=== PATIENT | female | born 1985 | race Caucasian/White ===

== ENCOUNTER 2017-12-05 05:04 | Emergency (ER) | payer SELFPAY ==
--- OUTSIDE RECORDS SUMMARY | 2017-12-05 05:07 | XMS REPORT ---
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 , unspecified Hepatitis C 070.70 Active Rodari Unspecified / Coe viral AUTO MACHINIST hepatitis C without hepatic coma BMI 32.0-32.9 Active Rodari Body Mass / Coe Index AUTO MACHINIST 32.0-32.9, adult Breast Exam, V76.19 Active Rodari Other Screening / Coe screening AUTO MACHINIST breast examination Contraception V25.09 Active Rodari Encounter for counseling / Coe other general AUTO MACHINIST counseling and advice on contraceptive management Depression/anxi 300.4 Active Rodari Dysthymic ety / Coe disorder AUTO MACHINIST Encounter for V05.9 Active Rodari Need for immunization / Coe prophylactic AUTO MACHINIST vaccination and inoculation against unspecified single disease Obesity Active Rodari Obesity, / Coe unspecified AUTO MACHINIST PTSD 309.81 Active Rodari Posttraumatic / Coe stress AUTO MACHINIST disorder Screening for V73.98 Active Rodari Screening chlamydial / Coe examination disease AUTO MACHINIST for unspecified chlamydial disease Screening for V77.1 Active Rodari Screening for DM / Coe diabetes AUTO MACHINIST mellitus Screening for V77.99 Active Rodari Screening for endocrine / Coe other and disease AUTO MACHINIST unspecified endocrine, nutritional, metabolic, and immunity disorders Screening for V77.91 Active Rodari Screening for lipid disorder / Coe lipoid AUTO MACHINIST disorders Screening for V77.99 Active Rodari Screening for vitamin D / Oce other and deficiency AUTO MACHINIST unspecified endocrine, nutritional, metabolic, and immunity disorders Screening, STD V74.5 Active Rodari Screening Coe examination AUTO MACHINIST for venereal disease Special V73.89 Active Rodari Screening screening Coe examination examination for AUTO MACHINIST for other other specified specified viral diseases viral diseases Well Woman V72.31 Active Rodari Routine / [place] gynecological AUTO MACHINIST examination Medication List Medication Instructions Start Stop Generic NDC Status Provider Patient Date Date Name Instruction FLAGYL 500 MG 1 tab by METRONIDAZOLE 15953830229 Active Rodari Active TABS mouth twice Coe a day for 7 AUTO MACHINIST days FLUCONAZOLE 1 tablet by FLUCONAZOLE 74030485381 Active Rodari Active 150 MG TABS mouth once. Coe Take after AUTO MACHINIST completing your Flagyl. ABILIFY 10 MG 1 tablet by ARIPIPRAZOLE 12905826814 Active Rodari Active ORAL TABLET mouth daily [place] AUTO MACHINIST LEXAPRO 20 MG 1 By Mouth ESCITALOPRAM 60265219504 Active Rodari Active TABS Every Day OXALATE Coe AUTO MACHINIST TRAZODONE HCL 1 by mouth TRAZODONE HCL 00641785192 Active Rodari Active 150 MG TABS nightly at [place] bedtime AUTO MACHINIST Advance Directives Directive Description Start Date DISCUSSED - NO DECISION MADE Immunizations Vaccine Administration Date Value Standard Description hepatitis B vaccine #1 given given hepatitis B vaccine, unspecified formulation Tetanus toxoid, reduced given tetanus toxoid, reduced diphtheria toxoid and diphtheria toxoid, and acellular Pertussis vaccine, acellular pertussis vaccine, absorbed (TdaP) given adsorbed Vital Signs Date Name Value Unit Range Description blood pressure, diastolic 75 mm[Hg] BP gamboa blood pressure, systolic 117 mm[Hg] BP sys height E&M 60 [in_us] Bdy height pulse rate E&M 64 /min Heart rate temperature E&M 98.2 [degF] Body temperature weight E&M 165 [lb_av] Weight Measured Diagnostic Results Date Name Value Unit Range Description Lab Report: CBC With Differential/Platelet, Comp. Metabolic Panel (14), ... - Serology hepatitis C antibody, serum >11.0 0.0-0.9 Office Visit: Annual / [employer] without PAP/ DEPO-Brith Control/ Vaccine Rm# 14 vac - Urinalysis pH, urine, semiquantitative 6.0 Lab Report: CBC With Differential/Platelet, Comp. Metabolic Panel (14), ... - Hematology lymphocyte count, blood, automated 2.6 X10E3/UL 10*3/mm3 0.7- 3.1 Office Visit: Annual / [employer] without PAP/ DEPO-Brith Control/ Vaccine Rm# 14 vac - Urinalysis bilirubin, urine negative Lab Report: CBC With Differential/Platelet, Comp. Metabolic Panel (14), ... - Chemistry urea nitrogen, blood 14 mg/dL 6-20 creatinine, serum 0.81 mg/dL 0.57-1.00 chloride, serum 102 mmol/L 96-106 Lab Report: CBC With Differential/Platelet, Comp. Metabolic Panel (14), ... - Hematology mean corpuscular volume, RBC 86 fL 79-97 Lab Report: CBC With Differential/Platelet, Comp. Metabolic Panel (14), ... - Chemistry triglyceride, serum, fasting 82 mg/dL 0-149 Lab Report: CBC With Differential/Platelet, Comp. Metabolic Panel (14), ... - Hematology erythrocyte (RBC) count 4.35 X10E6/UL 10*6/mm3 3.77-5.28 Lab Report: CBC With Differential/Platelet, Comp. Metabolic Panel (14), ... - Chemistry Estimated Glomerular Filtration Rate (calc) 96 mL/min/1.73m2 > 59 Office Visit: Annual / [employer] without PAP/ DEPO-Brith Control/ Vaccine Rm# 14 vac - Urinalysis appearance, urine clear Lab Report: CBC With Differential/Platelet, Comp. Metabolic Panel (14), ... - Hematology platelet count 167 X10E3/UL 10*3/mm3 072-224 8642/10/11 red blood cell distribution width 13.9 % 12.3-15.4 Lab Report: CBC With Differential/Platelet, Comp. Metabolic Panel (14), ... - Chemistry protein, total, serum 7.0 g/dL 6.0-8.5 HDL cholesterol, serum 49 mg/dL >39 Office Visit: Annual / [employer] without PAP/ DEPO-Brith Control/ Vaccine Rm# 14 vac - Urinalysis glucose, urine, semiquantitative negative Lab Report: CBC With Differential/Platelet, Comp. Metabolic Panel (14), ... - Hematology eosinophils as percent of blood leukocytes 1 % Not Estab. Lab Report: CBC With Differential/Platelet, Comp. Metabolic Panel (14), ... - Chemistry albumin/globulin ratio, serum 1.5 1.2-2.2 Absolute Neutrophils 4.9 X10E3/UL 10*3/uL 1.4-7.0 Lab Report: CBC With Differential/Platelet, Comp. Metabolic Panel (14), ... - Hematology basophil count, absolute 0.0 x10E3/uL 0.0-0.2 Lab Report: CBC With Differential/Platelet, Comp. Metabolic Panel (14), ... - Chemistry hepatitis B surface antigen Negative Negative alanine aminotransferase (SGPT), serum 30 U/L 0-32 LDL cholesterol, serum 104 mg/dL 0-99 Office Visit: Annual / [employer] without PAP/ DEPO-Brith Control/ Vaccine Rm# 14 vac - Urinalysis nitrite, urine, semiquantitative negative Lab Report: CBC With Differential/Platelet, Comp. Metabolic Panel (14), ... - Hematology monocytes as percent of blood leukocytes 5 % Not Estab. Lab Report: CBC With Differential/Platelet, Comp. Metabolic Panel (14), ... - Chemistry cholesterol, serum 169 mg/dL 100-199 Lab Report: CBC With Differential/Platelet, Comp. Metabolic Panel (14), ... - Hematology mean corpuscular hemoglobin concentration, RBC 31.9 G/DL % 31.5- 35.7 Office Visit: Annual / [employer] without PAP/ DEPO-Brith Control/ Vaccine Rm# 14 vac - Urinalysis leukocyte esterase, urine, by dipstick negative Lab Report: CBC With Differential/Platelet, Comp. Metabolic Panel (14), ... - Hematology hemoglobin, blood 11.9 g/dL 11.1-15.9 leukocyte count, blood 8.0 X10E3/UL 10*3/mm3 3.4-10.8 Office Visit: Annual / [employer] without PAP/ DEPO-Brith Control/ Vaccine Rm# 14 vac - Urinalysis protein, urine, semiquantitative (dipstick) negative Lab Report: CBC With Differential/Platelet, Comp. Metabolic Panel (14), ... - Hematology hematocrit, blood 37.3 % 34.0-46.6 Lab Report: CBC With Differential/Platelet, Comp. Metabolic Panel (14), ... - Chemistry globulin, serum 2.8 1.5-4.5 vitamin D 25-hydroxy, serum 47.3 ng/mL 30.0-100.0 thyroid stimulating hormone, serum 1.810 u[iU]/mL 0.450-4.500 albumin, serum 4.2 g/dL 3.5-5.5 very low density lipoproteins 16 mg/dL 5-40 Lab Report: CBC With Differential/Platelet, Comp. Metabolic Panel (14), ... - Serology rubella antibody, serum, IgG 2.94 Immune >0.99 Office Visit: Annual / [employer] without PAP/ DEPO-Brith Control/ Vaccine Rm# 14 vac - Urinalysis urobilinogen, urine, semiquantitative (dipstick) negative Lab Report: CBC With Differential/Platelet, Comp. Metabolic Panel (14), ... - Hematology basophils as percent of blood leukocytes 0 % Not Estab. Lab Report: CBC With Differential/Platelet, Comp. Metabolic Panel (14), ... - Chemistry calcium, serum 8.9 mg/dL 8.7-10.2 Lab Report: CBC With Differential/Platelet, Comp. Metabolic Panel (14), ... 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 [employer]ATE Lab Report: CBC With Differential/Platelet, Comp. Metabolic Panel (14), ... - Chemistry urea nitrogen/creatinine ratio, serum 17 9- immature granulocytes, percentage of total cells, blood 0 % Not Estab. Lab Report: CBC With Differential/Platelet, Comp. Metabolic Panel (14), ... - Genetics/fertility eGFR if 111 mL/min/1.73m2 >59 Lab Report: CBC With Differential/Platelet, Comp. Metabolic Panel (14), ... - Hematology lymphocytes as percent of blood leukocytes 33 % Not Estab. Lab Report: CBC With Differential/Platelet, Comp. Metabolic Panel (14), ... - Chemistry carbon dioxide, venous blood 26 mmol/L 18-29 Lab Report: CBC With Differential/Platelet, Comp. Metabolic Panel (14), ... - Serology rapid plasma reagin antibody, serum Non Reactive Non Reactive Lab Report: NuSwab Vaginitis Plus (VG+) - Lab chlamydia DNA probe Negative Negative Lab Report: CBC With Differential/Platelet, Comp. Metabolic Panel (14), ... - Chemistry sodium, serum 139 mmol/L 134-144 Lab Report: [facility] Vaginitis Plus (VG+) - Microbiology Neisseria gonorrhoeae DNA probe Negative Negative Office Visit: Annual / [employer] without PAP/ DEPO-Brith Control/ Vaccine Rm# 14 vac - Chemistry beta HCG, urine, semiquantitative negative Lab Report: CBC With Differential/Platelet, Comp. Metabolic Panel (14), ... - Chemistry alkaline phosphatase, serum 62 U/L 39-117 Office Visit: Annual / [employer] without PAP/ DEPO-Brith Control/ Vaccine Rm# 14 vac - Urinalysis ketones, urine, by test strip negative Lab Report: CBC With Differential/Platelet, Comp. Metabolic Panel (14), ... - Hematology Eosinophil Absolute Count 0.1 X10E3/UL 10*3/uL 0.0-0.4 Office Visit: Annual / [employer] without PAP/ DEPO-Brith Control/ Vaccine Rm# 14 vac - Urinalysis specific gravity, urine 1.025 Lab Report: CBC With Differential/Platelet, Comp. Metabolic Panel (14), ... - Hematology mean corpuscular hemoglobin, RBC 27.4 pg 26.6-33.0 Lab Report: [facility] Vaginitis Plus (VG+) - Urinalysis trichomonas vaginalis, urine Negative Negative Lab Report: CBC With Differential/Platelet, Comp. Metabolic Panel (14), ... - Chemistry bilirubin, serum, total 0.4 mg/dL 0.0-1.2 Lab Report: CBC With Differential/Platelet, Comp. Metabolic Panel (14), ... - Hematology neutrophils as percent of blood leukocytes 61 % Not Estab. Office Visit: Annual / [employer] without PAP/ DEPO-Brith Control/ Vaccine Rm# 14 vac - Urinalysis blood in urine (hemoglobin) by dipstick negative Lab Report: CBC With Differential/Platelet, Comp. Metabolic Panel (14), ... - Chemistry potassium, serum 4.1 mmol/L 3.5-5.2 blood glucose, random 84 mg/dL 65-99 aspartate aminotransferase (SGOT), serum 28 U/L 0-40 Office Visit: Annual / [employer] without PAP/ DEPO-Brith Control/ Vaccine Rm# 14 vac - Urinalysis urine color yellow Encounters Date Encounter Provider Code Facility New Patient Detailed Marshall Coe AUTO MACHINIST CPT-18194 [facility] 11:51:34 CDT - [address] Procedures Code Procedure Name Date Entry Date Standard Description CPT-26133 Handling of specimen for transfer 13:11:22 CDT CPT-88829 Venipuncture 13:11:20 CDT CPT-23041 TDAP 11:51:58 CDT CPT-58076 Admin of Vaccine - Injection - Each Add'l 11:51:58 CDT CPT-13987 Hepatitis B - Adult 11:51:58 CDT CPT-32602 Admin of Vaccine - Injection - 1 11:51:58 CDT CPT-88682 Urinalysis - Dip only - In [place] 11:51:36 CDT CPT-99634 Urinalysis - - [place] 11:51:35 CDT CPT-64423 Handling of specimen for transfer 11:51:35 CDT CPT-44466 Venipuncture 11:51:35 CDT CPT-55111 New Patient Well Exam ( - 38 Yrs) - [address] 11:51:30 CDT CPT-HE001 Health Education/Supportive 14:13:18 CDT Counseling
[2017-12-05] MEDS ORDERED: NA CHLORIDE 0.9% 1,000 ML ONE (05:52)
[2017-12-05 06:10] LABS: Absolute Lymphocytes (CBC) 2.6 K/uL (0.7-4.9); Absolute Monocytes 0.9 K/uL (0.1-1.3); Absolute Neutrophil 7.4 K/uL (1.8-8.0); Basophils % 0.4 % (0-1.3); Eosinophils % 0.3 % (0-4.4); Hematocrit 40.5 % (36.0-45.0); Lymphocytes % 23.9 % (15.3-44.8); MCH 27.9 pg (27.0-35.0); MCV 84.4 fL (80-100); MPV 10.6 fL (7.6-11.3); Monocytes % 8.1 % (3.3-12.3); RBC Red Blood Cell Count 4.79 M/uL (3.86-4.86)
[2017-12-05 06:13] LABS: Protime INR 1.08
[2017-12-05 06:57] LABS: ALT/SGPT 25 U/L (12-78); AST/SGOT 25 U/L (15-37); Albumin 3.7 g/dL (3.4-5.0); Alkaline Phosphatase 102 U/L (45-117); BUN Blood Urea Nitrogen 17 mg/dL (7-18); Bicarbonate 26 mmol/L (21-32); Bilirubin Direct 0.3 mg/dL (0-0.2); Bilirubin Total 0.8 mg/dL (0.2-1.0); Glucose Level 83 mg/dL (74-106); Protein, Total 7.9 g/dL (6.4-8.2); Sodium Level 143 mmol/L (136-145)
[2017-12-05 07:34] LABS: Alcohol Serum/Plasma < 3 mg/dL (0-3)
[2017-12-05] MEDS ORDERED: POTASSIUM 25 MEQ EFFERV TAB ONE (08:14)
[2017-12-05 08:42] LABS: Barbiturates NEGATIVE (NEGATIVE); Benzodiazepines POSITIVE (NEGATIVE); Cocaine POSITIVE (NEGATIVE); METHAMPHETAM POSITIVE (NEGATIVE); Methadone NEGATIVE (NEGATIVE); Opiates NEGATIVE (NEGATIVE); Phencyclidine NEGATIVE (NEGATIVE); THC Cannibis POSITIVE (NEGATIVE)
--- NOTE | 2017-12-05 08:50 | RAD REPORT ---
EXAM DESCRIPTION: CT - [id number] - 12/05/2017 8:40 am CLINICAL HISTORY: Trauma, head and neck injury COMPARISON: None. TECHNIQUE: Axial 5 mm thick images of the head were obtained. Axial 2 mm thick images of the cervic al spine were obtained with sagittal and coronal reconstruction images generated and reviewed. All CT scans are performed using dose optimization technique as appropriate and may include automated exposure control or mA/KV adjustment according to patient size. FINDINGS: No intracranial hemorrhage, mass, edema or acute intracranial finding. Ventricles are normal. No extr a-axial fluid collections. Mastoid air cells and paranasal sinuses are clear. No globe or orbit abnor mality seen. Cervical body height and alignment are normal. No disk space narrowing. No fracture or acute bony abn ormality. No tracheal compromise identified. No edema, hematoma, mass or other significant neck soft tissue fin ding. No hyoid bone fracture. IMPRESSION: Negative CT head examination for acute or significant finding. Negative CT cervical spine examination for acute or significant finding. No hematoma, edema or other significant neck soft tissue finding.
--- NOTE | 2017-12-05 08:56 | RAD REPORT ---
EXAM DESCRIPTION: CT - Thorax Wo Con - 12/05/2017 8:40 am CLINICAL HISTORY: Trauma, thoracic pain. There is substantial motion degradation on the examination. Patient was combative and unable to cooperate with the examination. COMPARISON: None. TECHNIQUE: Axial 5 mm thick images of the chest were obtained without IV contrast. All CT scans are performed using dose optimization technique as appropriate and may include automated exposure control or mA/KV adjustment according to patient size. FINDINGS: No pulmonary contusion or acute lung parenchymal process seen. No pneumothorax or pleural fluid collection. No pericardial thickening or effusion. T1-T5 bodies and the T10-T12 bodies are normal in height and a lignment. No fracture or acute bone finding identifiable. T6-T9 bodies along with the associated beverly spinal soft tissues and mediastinal structures at the these axial levels cannot be assessed due to a very substantial motion degradation. No motion was present on the CT diet therapist imaging. The thoracic bodi es appear to be normal in height and alignment from these projections. IMPRESSION: Thoracic spine assessment is nondiagnostic in the T6-T9 region due to a substantial lola on. Based on the diet therapist images the T6-T9 region shows normal height and alignment of the vertebrae. Upper thoracic and lower thoracic portions are unremarkable. No pulmonary contusion, pneumothorax or pleural fluid collection.
[2017-12-05 09:33] LABS: Urine Blood 2+ (NEG); Urine Glucose NEGATIVE (NEG); Urine Protein 2+ (NEG); Urine Specific Gravity >1.030 (1.005-1.030); Urine pH 5.5 (5.0-7.0)
--- NOTE | 2017-12-05 09:38 | EKG ---
Test Date: 2017-12-05 Test Time: 05:40:07 [place]: [place] MEASUREMENT RESULTS: Intervals: Rate: 97 SC: 128 QRSD: 80 QT: 368 QTc: 467 [place]: P: 40 SC: 128 QRS: 35 T: 54 INTERPRETIVE STATEMENTS: Normal sinus rhythm Normal ECG No previous ECG available for comparison Electronically Signed On 12-05-17 09:37:54 CDT by Arnie Strickland
[2017-12-05] MEDS ORDERED: IBUPROFEN 400 MG TAB ONE (19:45)
[2017-12-05] MEDS ORDERED: IBUPROFEN 200 MG TAB PO ONE (19:46)
[2017-12-06] MEDS ORDERED: DIAZEPAM 2 MG TABLET ONE (08:17)
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
--- NOTE | 2017-12-06 11:22 | ER ---
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 Family/friend mh5 present: no. Sitter present: Yes. 14:00 Safety checks: Items removed: yes. Door open/sign placed on door: yes. Family/friend mh5 present: no. Sitter present: Yes. 14:15 Safety checks: Items removed: yes. Door open/sign placed on door: yes. Family/friend mh5 present: no. Sitter present: Yes. 14:30 Safety checks: Items removed: yes. Door open/sign placed on door: yes. Family/friend mh5 present: no. Sitter present: Yes. 14:45 Safety checks: Items removed: yes. Door open/sign placed on door: yes. Family/friend mh5 present: no. Sitter present: Yes. 15:00 Safety checks: Items removed: yes. Door open/sign placed on door: yes. Family/friend mh5 present: no. Sitter present: Yes. 15:15 Safety checks: Items removed: yes. Door open/sign placed on door: yes. Family/friend mh5 present: no. Sitter present: Yes. 15:30 Safety checks: Items removed: yes. Door open/sign placed on door: yes. Family/friend mh5 present: no. Sitter present: Yes. 15:45 Safety checks: Items removed: yes. Door open/sign placed on door: yes. Family/friend mh5 present: no. Sitter present: Yes. 16:00 Safety checks: Items removed: yes. Door open/sign placed on door: yes. Family/friend mh5 present: no. Sitter present: Yes. 16:15 Safety checks: Items removed: yes. Door open/sign placed on door: yes. Family/friend mh5 present: no. Sitter present: Yes. 16:30 Safety checks: Items removed: yes. Door open/sign placed on door: yes. Family/friend mh5 present: no. Sitter present: Yes. 16:45 Safety checks: Items removed: yes. Door open/sign placed on door: yes. Family/friend mh5 present: no. Sitter present: Yes. 17:00 Safety checks: Items removed: yes. Door open/sign placed on door: yes. Family/friend mh5 present: no. Sitter present: Yes. 17:15 Safety checks: Items removed: yes. Door open/sign placed on door: yes. Family/friend mh5 present: no. Sitter present: Yes. 17:30 Safety checks: Items removed: yes. Door open/sign placed on door: yes. Family/friend mh5 present: no. Sitter present: Yes. 17:45 Safety checks: Items removed: yes. Door open/sign placed on door: yes. Family/friend mh5 present: no. Sitter present: Yes. 18:00 Safety checks: Items removed: yes. Door open/sign placed on door: yes. Family/friend mh5 present: no. Sitter present: Yes. 18:15 Safety checks: Items removed: yes. Door open/sign placed on door: yes. Family/friend mh5 present: no. Sitter present: Yes. 18:30 Safety checks: Items removed: yes. Door open/sign placed on door: yes. Family/friend mh5 present: no. Sitter present: Yes. 18:46 Safety Checks: Personal items have been removed. The door is open or patient has been mh6 placed in a hallway bed/chair. There are no family/friend visitors at this time Sitter present at this time. 18:59 Report given to SANDEEP Romero. jl7 19:00 Safety Checks: Personal items have been removed. The door is open or patient has been mh6 placed in a hallway bed/chair. There are no family/friend visitors at this time Sitter present at this time. 19:15 Safety Checks: Personal items have been removed. The door is open or patient has been mh6 placed in a hallway bed/chair. There are no family/friend visitors at this time Sitter present at this time. 19:30 Appears tearful. Patient requests pain medication. Safety Checks: Personal items have mh6 been removed. The door is open or patient has been placed in a hallway bed/chair. There are no family/friend visitors at this time Sitter present at this time. 19:31 Attending Physician role handed off by Jamaal Meléndez MD 19:31 Chris García MD is Attending Physician. gs 19:45 Safety Checks: Personal items have been removed. The door is open or patient has been mh6 placed in a hallway bed/chair. There are no family/friend visitors at this time Sitter present at this time. 20:00 Safety Checks: Personal items have been removed. The door is open or patient has been mh6 placed in a hallway bed/chair. There are no family/friend visitors at this time Sitter present at this time. 20:15 Safety Checks: Personal items have been removed. The door is open or patient has been mh6 placed in a hallway bed/chair. There are no family/friend visitors at this time Sitter present at this time. 20:30 No apparent distress. Safety Checks: Personal items have been removed. The door is open mh6 or patient has been placed in a hallway bed/chair. Sitter present at this time. 20:30 Pt visited by Friend. Safety Checks: Personal items have been removed. The door is open mh6 or patient has been placed in a hallway bed/chair. Sitter present at this time. 20:45 Pt visited by Friend. Safety Checks: Personal items have been removed. The door is open mh6 or patient has been placed in a hallway bed/chair. Sitter present at this time. 21:00 Pt visited by Friend. Safety Checks: Personal items have been removed. The door is open mh6 or patient has been placed in a hallway bed/chair. Sitter present at this time. 21:15 Pt visited by Friend. Safety Checks: Personal items have been removed. The door is open mh6 or patient has been placed in a hallway bed/chair. Sitter present at this time. 21:15 [facility] with no beds at this time. Pt put on waiting list. ms 21:30 Pt visited by. Safety Checks: Personal items have been removed. The door is open or mh6 patient has been placed in a hallway bed/chair. A family member and/or friend is present and encouraged to stay. Sitter present at this time. 21:45 Safety Checks: Personal items have been removed. The door is open or patient has been mh6 placed in a hallway bed/chair. A family member and/or friend is present and encouraged to stay. Sitter present at this time. 22:00 No apparent distress. Appears tearful. Safety Checks: Personal items have been removed. mh6 The door is open or patient has been placed in a hallway bed/chair. There are no family/friend visitors at this time Sitter present at this time. 22:15 Safety Checks: Personal items have been removed. The door is open or patient has been mh6 placed in a hallway bed/chair. There are no family/friend visitors at this time Sitter present at this time. 22:25 Sj Strickland doing Nurse to Nurse. ms 22:30 Safety Checks: Personal items have been removed. The door is open or patient has been mh6 placed in a hallway bed/chair. There are no family/friend visitors at this time Sitter present at this time. 22:45 Safety Checks: Personal items have been removed. The door is open or patient has been mh6 placed in a hallway bed/chair. There are no family/friend visitors at this time Sitter present at this time. 23:15 Patient requests food. Safety Checks: Personal items have been removed. The door is mh6 open or patient has been placed in a hallway bed/chair. There are no family/friend visitors at this time Sitter present at this time. 23:30 Safety Checks: Personal items have been removed. The door is open or patient has been mh6 placed in a hallway bed/chair. There are no family/friend visitors at this time Sitter present at this time. 23:30 Chacha doing Nurse to Nurse. ms 23:45 Safety Checks: Personal items have been removed. The door is open or patient has been mh6 placed in a hallway bed/chair. There are no family/friend visitors at this time Sitter present at this time. 12/06 00:00 No apparent distress. Appears to be sleeping. Safety Checks: Personal items have been mh6 removed. The door is open or patient has been placed in a hallway bed/chair. There are no family/friend visitors at this time Sitter present at this time. 00:02 Primary Nurse role handed off by Alicia Montalvo, RN jd3 00:02 Andre Sparrow, SANDEEP is Primary Nurse. jd3 00:15 No apparent distress. Appears to be sleeping. Safety Checks: Personal items have been mh6 removed. The door is open or patient has been placed in a hallway bed/chair. There are no family/friend visitors at this time Sitter present at this time. 00:30 No apparent distress. Appears to be sleeping. Safety Checks: Personal items have been mh6 removed. The door is open or patient has been placed in a hallway bed/chair. There are no family/friend visitors at this time Sitter present at this time. 00:45 No apparent distress. Appears to be sleeping. Safety Checks: Personal items have been mh6 removed. The door is open or patient has been placed in a hallway bed/chair. There are no family/friend visitors at this time Sitter present at this time. 01:00 No apparent distress. Appears to be sleeping. Safety Checks: Personal items have been mh6 removed. The door is open or patient has been placed in a hallway bed/chair. There are no family/friend visitors at this time Sitter present at this time. Safety Checks: Personal items have been removed. The door is open or patient has been placed in a hallway bed/chair. There are no family/friend visitors at this time Sitter present at this time. 01:15 No apparent distress. Appears to be sleeping. Safety Checks: Personal items have been mh6 removed. The door is open or patient has been placed in a hallway bed/chair. There are no family/friend visitors at this time Sitter present at this time. 01:30 No apparent distress. Appears to be sleeping. Safety Checks: Personal items have been mh6 removed. The door is open or patient has been placed in a hallway bed/chair. There are no family/friend visitors at this time Sitter present at this time. Safety Checks: Personal items have been removed. The door is open or patient has been placed in a hallway bed/chair. There are no family/friend visitors at this time Sitter present at this time. 01:45 No apparent distress. Appears to be sleeping. Safety Checks: Personal items have been mh6 removed. The door is open or patient has been placed in a hallway bed/chair. There are no family/friend visitors at this time Sitter present at this time. 02:00 No apparent distress. Appears to be sleeping. Safety Checks: Personal items have been mh6 removed. The door is open or patient has been placed in a hallway bed/chair. There are no family/friend visitors at this time Sitter present at this time. 02:15 No apparent distress. Appears to be sleeping. Safety Checks: Personal items have been mh6 removed. The door is open or patient has been placed in a hallway bed/chair. There are no family/friend visitors at this time Sitter present at this time. 02:30 No apparent distress. Appears to be sleeping. Safety Checks: Personal items have been mh6 removed. The door is open or patient has been placed in a hallway bed/chair. There are no family/friend visitors at this time Sitter present at this time. 02:45 Appears to be sleeping. Safety Checks: Personal items have been removed. The door is mh6 open or patient has been placed in a hallway bed/chair. There are no family/friend visitors at this time Sitter present at this time. 03:00 Appears to be sleeping. Safety Checks: Personal items have been removed. The door is mh6 open or patient has been placed in a hallway bed/chair. There are no family/friend visitors at this time Sitter present at this time. 03:15 Appears to be sleeping. Safety Checks: Personal items have been removed. The door is mh6 open or patient has been placed in a hallway bed/chair. There are no family/friend visitors at this time Sitter present at this time. 03:30 Appears to be sleeping. Safety Checks: Personal items have been removed. The door is mh6 open or patient has been placed in a hallway bed/chair. There are no family/friend visitors at this time Sitter present at this time. 03:45 Appears to be sleeping. Safety Checks: Personal items have been removed. The door is mh6 open or patient has been placed in a hallway bed/chair. There are no family/friend visitors at this time Sitter present at this time. 04:00 Appears to be sleeping. Safety Checks: Personal items have been removed. The door is mh6 open or patient has been placed in a hallway bed/chair. There are no family/friend visitors at this time Sitter present at this time. 04:15 Appears to be sleeping. Safety Checks: Personal items have been removed. The door is mh6 open or patient has been placed in a hallway bed/chair. There are no family/friend visitors at this time Sitter present at this time. 04:30 Appears to be sleeping. Safety Checks: Personal items have been removed. The door is mh6 open or patient has been placed in a hallway bed/chair. There are no family/friend visitors at this time Sitter present at this time. 04:45 Appears to be sleeping. Safety Checks: Personal items have been removed. The door is mh6 open or patient has been placed in a hallway bed/chair. There are no family/friend visitors at this time Sitter present at this time. 05:00 Appears to be sleeping. Safety Checks: Personal items have been removed. The door is mh6 open or patient has been placed in a hallway bed/chair. There are no family/friend visitors at this time Sitter present at this time. 05:15 No apparent distress. Appears to be sleeping. Safety Checks: Personal items have been mh6 removed. The door is open or patient has been placed in a hallway bed/chair. There are no family/friend visitors at this time Sitter present at this time. 05:30 Appears to be sleeping. Safety Checks: Personal items have been removed. The door is mh6 open or patient has been placed in a hallway bed/chair. There are no family/friend visitors at this time Sitter present at this time. 05:45 Appears to be sleeping. No apparent distress. Safety Checks: Personal items have been mh6 removed. The door is open or patient has been placed in a hallway bed/chair. There are no family/friend visitors at this time Sitter present at this time. 06:00 No apparent distress. Appears to be sleeping. Safety Checks: Personal items have been mh6 removed. The door is open or patient has been placed in a hallway bed/chair. There are no family/friend visitors at this time Sitter present at this time. 06:15 No apparent distress. Appears to be sleeping. Safety Checks: Personal items have been mh6 removed. The door is open or patient has been placed in a hallway bed/chair. There are no family/friend visitors at this time Sitter present at this time. 06:30 No apparent distress. Appears to be sleeping. Safety Checks: Personal items have been mh6 removed. The door is open or patient has been placed in a hallway bed/chair. There are no family/friend visitors at this time Sitter present at this time. 06:45 No apparent distress. Appears to be sleeping. Safety Checks: Personal items have been mh6 removed. The door is open or patient has been placed in a hallway bed/chair. There are no family/friend visitors at this time Sitter present at this time. 07:00 No apparent distress. Appears to be sleeping. Safety Checks: Personal items have been mh6 removed. The door is open or patient has been placed in a hallway bed/chair. There are no family/friend visitors at this time Sitter present at this time. 07:00 Safety Checks: Personal items have been removed. The door is open or patient has been rb1 placed in a hallway bed/chair. There are no family/friend visitors at this time Sitter present at this time. 07:07 Safety checks: Items removed: yes. Door open/sign placed on door: yes. Family/friend em1 present: no. Sitter present: Yes. 07:15 Safety Checks: Personal items have been removed. The door is open or patient has been rb1 placed in a hallway bed/chair. There are no family/friend visitors at this time Sitter present at this time. 07:22 Safety checks: Items removed: yes. Door open/sign placed on door: yes. Family/friend em1 present: no. Sitter present: Yes. 07:30 Safety Checks: Personal items have been removed. The door is open or patient has been rb1 placed in a hallway bed/chair. There are no family/friend visitors at this time Sitter present at this time. 07:35 Attending Physician role handed off by Chris García MD rn 07:35 Corona Conner MD is Attending Physician. rn 07:40 Safety checks: Items removed: yes. Door open/sign placed on door: yes. Family/friend em1 present: no. Sitter present: Yes. 07:45 Safety Checks: Personal items have been removed. The door is open or patient has been rb1 placed in a hallway bed/chair. There are no family/friend visitors at this time Sitter present at this time. 08:00 Safety Checks: Personal items have been removed. The door is open or patient has been rb1 placed in a hallway bed/chair. There are no family/friend visitors at this time Sitter present at this time. 08:01 Safety checks: Items removed: yes. Door open/sign placed on door: yes. Family/friend em1 present: no. Sitter present: Yes. 08:13 Safety checks: Items removed: yes. Door open/sign placed on door: yes. Family/friend em1 present: no. Sitter present: Yes. 08:15 Safety Checks: Personal items have been removed. The door is open or patient has been rb1 placed in a hallway bed/chair. There are no family/friend visitors at this time Sitter present at this time. 08:29 Safety checks: Items removed: yes. Door open/sign placed on door: yes. Family/friend em1 present: no. Sitter present: Yes. 08:30 Safety Checks: Personal items have been removed. The door is open or patient has been rb1 placed in a hallway bed/chair. There are no family/friend visitors at this time Sitter present at this time. 08:43 Safety checks: Items removed: yes. Door open/sign placed on door: yes. Family/friend em1 present: no. Sitter present: Yes. 08:45 Safety Checks: Personal items have been removed. The door is open or patient has been rb1 placed in a hallway bed/chair. There are no family/friend visitors at this time Sitter present at this time. 09:00 Safety Checks: Personal items have been removed. The door is open or patient has been rb1 placed in a hallway bed/chair. There are no family/friend visitors at this time Sitter present at this time. 09:00 Safety checks: Items removed: yes. Door open/sign placed on door: yes. Family/friend em1 present: no. Sitter present: Yes. 09:15 Safety checks: Items removed: yes. Door open/sign placed on door: yes. Family/friend em1 present: no. Sitter present: Yes. 09:20 Diet tray given. Verbal reassurance given. em1 09:33 Safety checks: Items removed: yes. Door open/sign placed on door: yes. Family/friend em1 present: no. Sitter present: Yes. 09:45 Safety checks: Items removed: yes. Door open/sign placed on door: yes. Family/friend em1 present: no. Sitter present: Yes. 10:00 Safety checks: Items removed: yes. Door open/sign placed on door: yes. Family/friend em1 present: no. Sitter present: Yes. 10:15 Safety checks: Items removed: yes. Door open/sign placed on door: yes. Family/friend em1 present: no. Sitter present: Yes. 10:32 Safety checks: Items removed: yes. Door open/sign placed on door: yes. Family/friend em1 present: no. Sitter present: Yes. 10:48 Safety checks: Items removed: yes. Door open/sign placed on door: yes. Family/friend em1 present: no. Sitter present: Yes. 11:07 Safety checks: Items removed: yes. Door open/sign placed on door: yes. Family/friend em1 present: no. Sitter present: Yes. 11:36 attempted to initiate transfer with Frankie at [facility]. Transfer declined eb due to bein at capacity. 11:43 Safety checks: Items removed: yes. Door open/sign placed on door: yes. Family/friend em1 present: no. Sitter present: Yes. 12:01 Safety checks: Items removed: yes. Door open/sign placed on door: yes. Family/friend em1 present:. 12:26 Safety checks: Items removed: yes. Door open/sign placed on door: yes. Family/friend em1 present: no. Sitter present: Yes. 12:39 Safety checks: Items removed: yes. Door open/sign placed on door: yes. Family/friend em1 present: no. Sitter present: Yes. 12:55 Safety checks: Items removed: yes. Door open/sign placed on door: yes. Family/friend em1 present: no. Sitter present: Yes. 13:15 Safety checks: Items removed: yes. Door open/sign placed on door: yes. Family/friend mh5 present: no. Sitter present: Yes. 13:30 Safety checks: Items removed: yes. Door open/sign placed on door: yes. Family/friend mh5 present: no. Sitter present: Yes. Safety checks: Items removed:. 13:45 Safety checks: Items removed: yes. Door open/sign placed on door: yes. Family/friend mh5 present: no. Sitter present: Yes. 14:00 Safety checks: Items removed: yes. Door open/sign placed on door: yes. Family/friend mh5 present: no. Sitter present: Yes. 14:15 Safety checks: Items removed: yes. Door open/sign placed on door: yes. Family/friend mh5 present: no. Sitter present: Yes. 14:30 Safety checks: Items removed: yes. Door open/sign placed on door: yes. Family/friend mh5 present: no. Sitter present: Yes. 14:45 Safety checks: Items removed: yes. Door open/sign placed on door: yes. Family/friend mh5 present: no. Sitter present: Yes. 15:00 Safety checks: Items removed: yes. Door open/sign placed on door: yes. Family/friend mh5 present: no. Sitter present: Yes. 15:15 Safety checks: Items removed: yes. Door open/sign placed on door: yes. Family/friend mh5 present: no. Sitter present: Yes. 15:30 Safety checks: Items removed: yes. Door open/sign placed on door: yes. Family/friend mh5 present: no. Sitter present: Yes. 15:45 Safety checks: Items removed: yes. Door open/sign placed on door: yes. Family/friend mh5 present: no. Sitter present: Yes. 16:00 Safety checks: Items removed: yes. Door open/sign placed on door: yes. Family/friend mh5 present: no. Sitter present: Yes. 16:15 Safety checks: Items removed: yes. Door open/sign placed on door: yes. Family/friend mh5 present: no. Sitter present: Yes. 16:30 Safety checks: Items removed: yes. Door open/sign placed on door: yes. Family/friend mh5 present: no. Sitter present: Yes. 16:45 Safety checks: Items removed: yes. Door open/sign placed on door: yes. Family/friend mh5 present: no. Sitter present: Yes. 17:00 Safety checks: Items removed: yes. Door open/sign placed on door: yes. Family/friend mh5 present: no. Sitter present: Yes. 17:15 Safety checks: Items removed: yes. Door open/sign placed on door: yes. Family/friend mh5 present: no. Sitter present: Yes. 17:30 Safety checks: Items removed: yes. Door open/sign placed on door: yes. Family/friend mh5 present: no. Sitter present: Yes. 17:45 Safety checks: Items removed: yes. Door open/sign placed on door: yes. Family/friend mh5 present: no. Sitter present: Yes. 18:00 Safety checks: Items removed: yes. Door open/sign placed on door: yes. Family/friend mh5 present: no. Sitter present: Yes. 18:15 Safety checks: Items removed: yes. Door open/sign placed on door: yes. Family/friend mh5 present: no. Sitter present: Yes. 18:30 Safety checks: Items removed: yes. Door open/sign placed on door: yes. Family/friend mh5 present: no. Sitter present: Yes. 19:02 Safety checks: Items removed: yes. Door open/sign placed on door: yes. Family/friend cc present: no. Sitter present: Yes. 19:15 Safety checks: Items removed: yes. Door open/sign placed on door: yes. Family/friend cc present: no. Sitter present: Yes. 19:30 Safety checks: Items removed: yes. Door open/sign placed on door: yes. Family/friend cc present: no. Sitter present: Yes. 19:45 Safety checks: Items removed: yes. Door open/sign placed on door: yes. Family/friend cc present: yes. Sitter present: Yes. 20:00 Safety checks: Items removed: yes. Door open/sign placed on door: yes. Family/friend cc present: yes. Sitter present: Yes. 20:15 Safety checks: Items removed: yes. Door open/sign placed on door: yes. Family/friend cc present: yes. Sitter present: Yes. 20:30 Safety checks: Items removed: yes. Door open/sign placed on door: yes. Family/friend cc present: yes. Sitter present: Yes. 20:47 Safety checks: Items removed: yes. Door open/sign placed on door: yes. Family/friend cc present: yes. Sitter present: Yes. 21:00 Safety checks: Items removed: yes. Door open/sign placed on door: yes. Family/friend cc present: yes. Sitter present: Yes. 21:15 Safety checks: Items removed: yes. Door open/sign placed on door: yes. Family/friend cc present: yes. Sitter present: Yes. 21:33 Safety checks: Items removed: yes. Door open/sign placed on door: yes. Family/friend cc present: yes. Sitter present: Yes. 21:45 Safety checks: Items removed: yes. Door open/sign placed on door: yes. Family/friend cc present: yes. Sitter present: Yes. 21:59 Safety checks: Items removed: yes. Door open/sign placed on door: yes. Family/friend cc present: yes. Sitter present: Yes. 22:17 Safety checks: Items removed: yes. Door open/sign placed on door: yes. Family/friend cc present: yes. Sitter present: Yes. 22:30 Safety checks: Items removed: yes. Door open/sign placed on door: yes. Family/friend cc present: yes. Sitter present: Yes. 22:45 Safety checks: Items removed: yes. Door open/sign placed on door: yes. Family/friend cc present: yes. Sitter present: Yes. 23:01 Safety checks: Items removed: yes. Door open/sign placed on door: yes. Family/friend cc present: yes. Sitter present: Yes. 23:15 Safety checks: Items removed: yes. Door open/sign placed on door: yes. Family/friend cc present: yes. Sitter present: Yes. 23:30 Safety checks: Items removed: yes. Door open/sign placed on door: yes. Family/friend cc present: no. Sitter present: Yes. 23:45 Safety checks: Items removed: yes. Door open/sign placed on door: yes. Family/friend cc present: no. Sitter present: Yes. 12/07 00:02 Safety checks: Items removed: yes. Door open/sign placed on door: yes. Family/friend cc present: no. Sitter present: Yes. 00:18 Safety checks: Items removed: yes. Door open/sign placed on door: yes. Family/friend cc present: no. Sitter present: Yes. 00:34 Safety checks: Items removed: yes. Door open/sign placed on door: yes. Family/friend cc present: no. Sitter present: Yes. 00:47 Safety checks: Items removed: yes. Door open/sign placed on door: yes. Family/friend cc present: no. Sitter present: Yes. 01:03 Safety checks: Items removed: yes. Door open/sign placed on door: yes. Family/friend cc present: no. Sitter present: Yes. 01:16 Safety checks: Items removed: yes. Door open/sign placed on door: yes. Family/friend cc present: no. Sitter present: Yes. 01:34 Safety checks: Items removed: yes. Door open/sign placed on door: yes. Family/friend cc present: no. Sitter present: Yes. 01:46 Safety checks: Items removed: yes. Door open/sign placed on door: yes. Family/friend cc present: no. Sitter present: Yes. 01:59 Safety checks: Items removed: yes. Door open/sign placed on door: yes. Family/friend cc present: no. Sitter present: Yes. 02:15 Safety checks: Items removed: yes. Door open/sign placed on door: yes. Family/friend cc present: no. Sitter present: Yes. 02:30 Safety checks: Items removed: yes. Door open/sign placed on door: yes. Family/friend cc present: no. Sitter present: Yes. 02:46 Safety checks: Items removed: yes. Door open/sign placed on door: yes. Family/friend cc present: no. Sitter present: Yes. 02:58 Safety checks: Items removed: yes. Door open/sign placed on door: yes. Family/friend cc present: no. Sitter present: Yes. 03:15 Safety checks: Items removed: yes. Door open/sign placed on door: yes. Family/friend cc present: no. Sitter present: Yes. 03:30 Safety checks: Items removed: yes. Door open/sign placed on door: yes. Family/friend cc present: no. Sitter present: Yes. 03:45 Safety checks: Items removed: yes. Door open/sign placed on door: yes. Family/friend cc present: no. Sitter present: Yes. 04:00 Safety checks: Items removed: yes. Door open/sign placed on door: yes. Family/friend cc present: no. Sitter present: Yes. 04:15 Safety checks: Items removed: yes. Door open/sign placed on door: yes. Family/friend cc present: no. Sitter present: Yes. 04:30 Safety checks: Items removed: yes. Door open/sign placed on door: yes. Family/friend cc present: no. Sitter present: Yes. 04:45 Safety checks: Items removed: yes. Door open/sign placed on door: yes. Family/friend cc present: no. Sitter present: Yes. 05:00 Safety checks: Items removed: yes. Door open/sign placed on door: yes. Family/friend cc present: no. Sitter present: Yes. 05:15 Safety checks: Items removed: yes. Door open/sign placed on door: yes. Family/friend cc present: no. Sitter present: Yes. 05:31 Safety checks: Items removed: yes. Door open/sign placed on door: yes. Family/friend cc present: no. Sitter present: Yes. 05:43 Melany Moyer RN is Primary Nurse. bs1 05:45 Safety checks: Items removed: yes. Door open/sign placed on door: yes. Family/friend cc present: no. Sitter present: Yes. 06:00 Safety checks: Items removed: yes. Door open/sign placed on door: yes. Family/friend cc present: no. Sitter present: Yes. 06:15 Safety checks: Items removed: yes. Door open/sign placed on door: yes. Family/friend cc present: no. Sitter present: Yes. 06:31 Safety checks: Items removed: yes. Door open/sign placed on door: yes. Family/friend cc present: no. Sitter present: Yes. 06:45 Safety checks: Items removed: yes. Door open/sign placed on door: yes. Family/friend cc present: no. Sitter present: Yes. 06:59 Safety checks: Items removed: yes. Door open/sign placed on door: yes. Family/friend cc present: no. Sitter present: Yes. 07:11 Primary Nurse role handed off by Melany Moyer RN jl7 07:11 Alicia Montalvo RN is Primary Nurse. jl7 07:15 Safety checks: Items removed: yes. Door open/sign placed on door: yes. Family/friend dh3 present: no. Sitter present: Yes. 07:30 Safety checks: Items removed: yes. Door open/sign placed on door: yes. Family/friend dh3 present: no. Sitter present: Yes. 07:45 Safety checks: Items removed: yes. Door open/sign placed on door: yes. Family/friend dh3 present: no. Sitter present: Yes. 08:00 Safety checks: Items removed: yes. Door open/sign placed on door: yes. Family/friend dh3 present: no. Sitter present: Yes. 08:15 Safety checks: Items removed: yes. Door open/sign placed on door: yes. Family/friend dh3 present: no. Sitter present: Yes. 08:30 Safety checks: Items removed: yes. Door open/sign placed on door: yes. Family/friend dh3 present: no. Sitter present: Yes. 08:45 Safety checks: Items removed: yes. Door open/sign placed on door: yes. Family/friend dh3 present: no. Sitter present: Yes. 09:00 Safety checks: Items removed: yes. Door open/sign placed on door: yes. Family/friend dh3 present: no. Sitter present: Yes. 09:15 Safety checks: Items removed: yes. Door open/sign placed on door: yes. Family/friend dh3 present: no. Sitter present: Yes. 09:30 Safety checks: Items removed: yes. Door open/sign placed on door: yes. Family/friend dh3 present: no. Sitter present: Yes. 09:45 Safety checks: Items removed: yes. Door open/sign placed on door: yes. Family/friend dh3 present: no. Sitter present: Yes. 10:00 Safety checks: Items removed: yes. Door open/sign placed on door: yes. Family/friend dh3 present: no. Sitter present: Yes. 10:10 Report given to SANDEEP Wilcox. jl7 10:15 Safety checks: Items removed: yes. Door open/sign placed on door: yes. Family/friend dh3 present: no. Sitter present: Yes. 10:30 Safety checks: Items removed: yes. Door open/sign placed on door: yes. Family/friend dh3 present: no. Sitter present: Yes. 10:45 Safety checks: Items removed: yes. Door open/sign placed on door: yes. Family/friend dh3 present: no. Sitter present: Yes. 11:00 Safety checks: Items removed: yes. Door open/sign placed on door: yes. Family/friend dh3 present: no. Sitter present: Yes. 11:15 Safety checks: Items removed: yes. Door open/sign placed on door: yes. Family/friend dh3 present: no. Sitter present: Yes. 12:07 Safety checks: Items removed: yes. Door open/sign placed on door: yes. Family/friend tm3 present: no. Sitter present: Yes. 12:08 IV discontinued, intact, bleeding controlled, No redness/swelling at site. Pressure mb3 dressing applied. 12:17 Safety checks: Items removed: yes. Door open/sign placed on door: yes. Family/friend tm3 present: no. Sitter present: Yes. 12:32 Safety checks: Items removed: yes. Door open/sign placed on door: yes. Family/friend tm3 present: no. Sitter present: Yes. 12:48 Safety checks: Items removed: yes. Door open/sign placed on door: yes. Family/friend tm3 present: yes. Sitter present: Yes. Administered Medications: 12/05 05:55 Drug: NS 0.9% 1000 ml Route: IV; Rate: 1000 ml; Site: left hand; ea 12/06 16:34 Follow up: Response: No adverse reaction; IV Status: Completed infusion; IV Intake: mb3 1000ml 12/05 10:38 Drug: Potassium Effervescent Tablet 50 mEq Route: PO; jl7 12/06 16:34 Follow up: Response: No adverse reaction mb3 12/05 19:45 Drug: Ibuprofen 600 mg Route: PO; jd3 20:30 Follow up: Response: No adverse reaction jd3 12/06 08:16 Drug: Valium 2 mg Route: PO; rb1 08:44 Follow up: Response: No adverse reaction; pt. is resting with eyes closed, respirations rb1 even, unlabored. 16:40 Drug: Nicoderm CQ 21 mg/24 hr 1 patches Route: Transdermal; Site: abdomen; mb3 12/07 10:15 Follow up: Response: patch removed iw 12/06 23:59 Drug: Ativan 0.5 mg Route: PO; tl2 12/07 03:00 Follow up: Response: No adverse reaction bs1 10:17 Drug: Nicotine 21 mg/24 hr 1 patches {Note: left upper arm .} Route: Transdermal; Site: iw affected area; Intake: 12/06 16:34 IV: 1000ml; Total: 1000ml. mb3 Outcome: 11:20 ER care complete, transfer ordered by MD. hopkins 12/07 12:59 Discharge ordered by MD. hopkins 13:09 Eloped from patient exam room, after seeing physician Time discovered patient gone: mb3 December 07, 2017 at 13:09 13:09 Condition: stable 13:09 Instructed on none given, pt eloped 13:11 Patient left the ED. mb3 Signatures: Dispatcher [employer] EDMS Pablo Law tm3 Vin Arana MD MD pkl Ballard, Brenda RN Sejal Adame RN RN iw Solis, Maria ms Nieto, Roman, MD MD rn Martinez, Eric emMagda Coliler Rebecca, RN RN rb1 Makeda Sherman RN SANDEEP Eugenia Mejia, RN SANDEEP 2 Mary Moffett 5 Alicia Montalvo, RN RN jl7 Melany Alcocer 3 Zenobia Curran RN RN Chris Arita MD MD gs Appiah, William, MD MD wa Davies, Andre RN RN jd3 Laxmi Sun kw1 Melany Moyer, RN RN bs1 Corrine Zaldivar Mark, RN RN mb3 Mary Vang 6 Corrections: (The following items were deleted from the chart) 12/05 05:13 05:09 General: Appears uncomfortable, Behavior is cooperative, anxious, restless, ea ea 05:58 05:10 Suicide Risk Assessment: Sad Person Scale: Sex of patient: Female: Score 0 ea points. Age of patient: Score 1 point if patient 15-34. Depression: Score 1 point if signs of depression are present. Substance Abuse: Score 1 point if patient abuses alcohol or drugs. Rational Thinking: Score 1 point if patient is lacking rational thinking. Social Support: Score 1 point if social support is lacking and/or unavailable. ea 13:21 13:19 BP 97 / 68; Pulse 80bpm; Resp 16bpm; Pulse Ox 100% RA; Pain 0/10; mh5 mh5 19:16 19:15 Reassessment: Patient appears in no apparent distress at this time. No changes jd3 from previously documented assessment. Patient and/or family updated on plan of care and expected duration. Pain level reassessed. Patient is alert, oriented x 3, equal unlabored respirations, skin warm/dry/pink. jd3 20:04 20:02 BP 98 / 75; Pulse 77bpm; Resp 18bpm; Pulse Ox 100% RA; Temp 98F; 6 6 20:06 20:00 BP 98 / 75; Pulse 77bpm; Resp 18bpm; Pulse Ox 100% RA; Temp 98F; 6 6 21:06 20:30 Safety Checks: A family member and/or friend is present and encouraged to stay. 6 [facility] 21:06 20:45 Safety Checks: Personal items have been removed. The door is open or patient has mh6 been placed in a hallway bed/chair. A family member and/or friend is present and encouraged to stay. Sitter present at this time. 6 22:58 22:00 Reassessment: Patient appears in no apparent distress at this time. Patient jd3 and/or family updated on plan of care and expected duration. Pain level reassessed. Patient is alert, oriented x 3, equal unlabored respirations, skin warm/dry/pink. jd3 12/06 01:51 00:15 No apparent distress. Appears to be sleeping. 6 6 01:52 00:45 No apparent distress. Appears to be sleeping. [place] [id number] 20:21 19:15 Safety checks: Items removed: Door open/sign placed on door: yes. Family/friend cc present: no. Sitter present: Yes. cc 12/07 04:11 12/06 19:45 BP 103 / 70; Pulse 70bpm; Resp 18bpm; Pulse Ox 100% RA; Temp 97.9F; Pain cc 0/10; cc 12/07 04:11 12/06 23:50 BP 108 / 70; Pulse 77bpm; Resp 16bpm; Temp 98.2F Oral; Pain 0/10; cc cc 12/07 10:26 10:25 Response: patch removed iw iw
[2017-12-06] MEDS ORDERED: NICOTINE 21 MG/PAT TD ONE (16:40)
[2017-12-07] MEDS ORDERED: LORAZEPAM 0.5 MG TABLET ONE (00:01)
[2017-12-07] MEDS ORDERED: NICOTINE 21 MG/PAT TD ONE (10:15)
== END 2017-12-07 13:11 | disposition home or self-care (01) ==
LOC: ER 05:04
DX: F43.0 Acute stress reaction (principal); F31.9 Bipolar disorder, unspecified; F20.9 Schizophrenia, unspecified
CPT/HCPCS: 36415; 70450; 71250; 72125; 80048; 80076; 80307; 80320; 80329; 81003; 81025; 85025; 85610; 85730; 93005; 96360; 96361; 99285; J7030

== ENCOUNTER 2017-12-24 13:34 | Emergency (ER) | payer SELFPAY ==
--- OUTSIDE RECORDS SUMMARY | 2017-12-24 13:36 | XMS REPORT | Clinical Summary ---
:1985 Author Organization [facility] Address [address] [place] [address] Care Team Providers Name Role Phone Asked, No Pcp Primary Care Provider Unavailable Allergies No Known Allergies Current Medications Prescription Sig. Disp. Refills Start Date End Date Status OLANZapine (ZYPREXA) Take 1 tablet (5 30 tablet 0 12/19/2017 01/18/2018 Active 5 MG mg total) by tabletIndications: mouth nightly for Depression Treatment 30 days. Adjunct escitalopram Take 1 tablet (20 30 tablet 0 12/19/2017 01/18/2018 Active (LEXAPRO) 20 MG mg total) by tabletIndications: mouth every Anxiety with evening for 30 Depression days. nicotine polacrilex Chew 1 each (2 mg 100 each 0 12/19/2017 01/18/2018 Active (NICORETTE) 2 mg total) every 2 gumIndications: (two) hours as Smoking Cessation needed for smoking cessation for up to 30 days. Active Problems Problem Noted Date Suicidal ideation 12/11/2017 Encounters Date Type Specialty Care Team Description 12/11/2017 - Hospital Encounter Psychiatry Carlito Snell MD 12/19/2017 Maldonado Marie MD 12/10/2017 Intake Access N/A 12/06/2017 Intake Access N/A after 12/23/2016 Social History Tobacco Use Types Packs/Day Years Used Date Never Assessed Sex Assigned at Date Recorded Not on file Last Filed Vital Signs Vital Sign Reading Time Taken Blood Pressure 116/63 12/19/2017 6:01 AM CDT Pulse 67 12/19/2017 6:01 AM CDT Temperature 36.1 C (97 F) 12/19/2017 6:01 AM CDT Respiratory Rate 18 12/19/2017 6:01 AM CDT Oxygen Saturation 99% 12/19/2017 6:01 AM CDT Inhaled Oxygen Concentration - - Weight 59 kg (130 lb) 12/11/2017 5:04 AM CDT Height 149.9 cm (4' 11") 12/11/2017 5:04 AM CDT Body Mass Index 26.26 12/11/2017 5:04 AM CDT Plan of Treatment Not on file Procedures Procedure Name Priority Date/Time Associated Comments Diagnosis URINE DRUGS OF ABUSE Routine 12/19/2017 9:50 AM Results for this SCREEN CDT procedure are in the results section. GRAM STAIN Routine 12/12/2017 10:11 AM Results for this CDT procedure are in the results section. URINE CULTURE Routine 12/12/2017 10:11 AM Results for this CDT procedure are in the results section. URINALYSIS SCREEN Routine 12/12/2017 10:08 AM Results for this AND MICROSCOPY, WITH CDT procedure are in REFLEX TO CULTURE the results section. HEMOGLOBIN A1C Routine 12/12/2017 6:00 AM Results for this CDT procedure are in the results section. LIPID PANEL Routine 12/11/2017 7:04 AM Results for this CDT procedure are in the results section. ESTIMATED GFR Routine 12/11/2017 7:04 AM Results for this CDT procedure are in the results section. BASIC METABOLIC Routine 12/11/2017 7:04 AM Results for this PANEL CDT procedure are in the results section. after 12/23/2016 Results Urine drugs of abuse screen (12/19/2017 9:50 AM) Amphetamine screen, urine Negative [facility] DEPARTMENT OF PATHOLOGY AND GENOMIC MEDICINE Barbiturate screen, urine Negative [facility] DEPARTMENT OF PATHOLOGY AND GENOMIC MEDICINE Benzodiazepine screen, Negative [facility] DEPARTMENT OF urine PATHOLOGY AND GENOMIC MEDICINE Cannabinoid screen, urine Positive (A) [facility] DEPARTMENT OF PATHOLOGY AND GENOMIC MEDICINE Cocaine screen, urine Negative [facility] DEPARTMENT OF PATHOLOGY AND GENOMIC MEDICINE Methadone metabolite Negative [facility] DEPARTMENT OF (EDDP), urine PATHOLOGY AND GENOMIC MEDICINE Opiates screen, urine Negative [facility] DEPARTMENT OF PATHOLOGY AND GENOMIC MEDICINE Oxycodone screen, urine Negative [facility] DEPARTMENT OF PATHOLOGY AND GENOMIC MEDICINE Phencyclidine screen, urine Negative [facility] DEPARTMENT OF PATHOLOGY AND GENOMIC MEDICINE Tricyclic screen, urine Negative [facility] DEPARTMENT OF Comment: PATHOLOGY AND GENOMIC Drug screen minimum concentration of detectability MEDICINE Amsibwdvoayd4005 ng/mL Barbiturates 200 ng/mL Kkeqrnwgfbzbzvw329 ng/mL Igifzhc175 ng/mL Tulggqxow215 ng/mL Efhwgye703 ng/mL Lepkgseiw434 ng/mL Phencyclidine 25 ng/mL Kwcsidpwstin97 ng/mL Nbkgfdhnoi6002 ng/mL Negative test results indicates presumptive evidence of lack of clinically significant drug concentration in this urine specimen. Positive test results are presumptive evidence of clinically significant drug concentration in this urine specimen. Testing performed for medical purposes only. Specimen Urine Performing Organization Address City/[facility] Phone Number [facility] DEPARTMENT OF PATHOLOGY AND [address] [place], [place] [phone] [facility] MEDICINE Gram stain (12/12/2017 10:11 AM) Gram stain result No WBC's [facility] DEPARTMENT OF PATHOLOGY Occasional Gram negative rods AND GENOMIC MEDICINE Occasional Gram positive cocci in pairs Comment: Specimen Information Specimen Source: Urine Specimen Site: Clean catch Specimen Urine Performing Organization Address [facility] [place] Number [facility] DEPARTMENT OF PATHOLOGY AND [address] [place] [phone] [facility] Urine culture (12/12/2017 10:11 AM) Urine culture isolate Escherichia coli [facility] DEPARTMENT OF >10-5 cfu/ml PATHOLOGY AND GENOMIC (A) MEDICINE Comment: Specimen Information Specimen Source: Urine Specimen Site: Clean catch Urine culture isolate Mixed Gram positive isael [facility] DEPARTMENT OF 10-4 cfu/ml PATHOLOGY AND GENOMIC (A) MEDICINE Specimen Urine Organism Antibiotic Method Susceptibility Escherichia coli Ampicillin DEEPAK <=2 mcg/mL: Susceptible Escherichia coli Amoxicillin/Clavulanate DEEPAK 4/2 mcg/mL: Susceptible Escherichia coli Amikacin DEEPAK <=4 mcg/mL: Susceptible Escherichia coli Aztreonam DEEPAK <=1 mcg/mL: Susceptible Escherichia coli Ceftazidime DEEPAK <=0.5 mcg/mL: Susceptible Escherichia coli Ciprofloxacin DEEPAK <=0.5 mcg/mL: Susceptible Escherichia coli Ceftriaxone DEEPAK <=0.5 mcg/mL: Susceptible Escherichia coli Cefuroxime Sodium DEEPAK <=4 mcg/mL: Susceptible Escherichia coli Cefazolin DEEPAK 2 mcg/mL: Susceptible Escherichia coli Cefipime DEEPAK <=0.5 mcg/mL: Susceptible Escherichia coli Nitrofurantoin DEEPAK <=16 mcg/mL: Susceptible Escherichia coli Cefoxitin DEEPAK <=4 mcg/mL: Susceptible Escherichia coli Gentamicin DEEPAK <=1 mcg/mL: Susceptible Escherichia coli Imipenem DEEPAK <=0.25 mcg/mL: Susceptible Escherichia coli Levofloxacin DEEPAK <=1 mcg/mL: Susceptible Escherichia coli Meropenem DEEPAK <=0.125 mcg/mL: Susceptible Escherichia coli Tobramycin DEEPAK 1 mcg/mL: Susceptible Escherichia coli Ampicillin/Sulbactam DEEPAK 4/2 mcg/mL: Susceptible Escherichia coli Trimethoprim/Sulfamethoxazole DEEPAK <=0.5/9.5 mcg/mL: Susceptible Escherichia coli Tetracycline DEEPAK >8 mcg/mL: Resistant Escherichia coli Piperacillin/Tazobactam DEEPAK <=2/4 mcg/mL: Susceptible Escherichia coli Ertapenem DEEPAK <=0.125 mcg/mL: Susceptible Escherichia coli Tigecycline DEEPAK <=0.5 mcg/mL: Susceptible Performing Organization Address [facility] Phone Number [facility] DEPARTMENT OF PATHOLOGY AND [address] [place] [address] [employer] MEDICINE Urinalysis screen and microscopy, with reflex to culture (12/12/2017 10:08 AM) Specimen site Clean catch [facility] DEPARTMENT OF PATHOLOGY AND GENOMIC MEDICINE Color, UA Yellow [facility] DEPARTMENT OF PATHOLOGY AND GENOMIC MEDICINE Appearance, UA Hazy [facility] DEPARTMENT OF PATHOLOGY AND GENOMIC MEDICINE Specific gravity, UA 1.011 1.001 - 1.035 [facility] DEPARTMENT OF PATHOLOGY AND GENOMIC MEDICINE pH, UA 7.0 5.0 - 8.5 [facility] DEPARTMENT OF PATHOLOGY AND GENOMIC MEDICINE Protein, UA Negative Negative [facility] DEPARTMENT OF PATHOLOGY AND GENOMIC MEDICINE Glucose, UA Negative Negative [facility] DEPARTMENT OF PATHOLOGY AND GENOMIC MEDICINE Ketones, UA Negative Negative [facility] DEPARTMENT OF PATHOLOGY AND GENOMIC MEDICINE Bilirubin, UA Negative Negative [facility] DEPARTMENT OF PATHOLOGY AND GENOMIC MEDICINE Blood, UA Small (A) Negative [facility] DEPARTMENT OF PATHOLOGY AND GENOMIC MEDICINE Nitrite, UA Negative Negative [facility] DEPARTMENT OF PATHOLOGY AND GENOMIC MEDICINE Urobilinogen, UA 2.0 (A) <2.0 [facility] DEPARTMENT OF PATHOLOGY AND GENOMIC MEDICINE Leukocyte esterase, UA Negative Negative [facility] DEPARTMENT OF PATHOLOGY AND GENOMIC MEDICINE Epithelial cells, UA 2 /HPF [facility] DEPARTMENT OF PATHOLOGY AND GENOMIC MEDICINE WBC, UA 1 0 - 4 /HPF [facility] DEPARTMENT OF PATHOLOGY AND GENOMIC MEDICINE RBC, UA <1 0 - 5 /HPF [facility] DEPARTMENT OF PATHOLOGY AND GENOMIC MEDICINE Bacteria, UA Moderate (A) None seen [facility] DEPARTMENT OF PATHOLOGY AND GENOMIC MEDICINE Yeast, UA None seen [facility] DEPARTMENT OF PATHOLOGY AND GENOMIC MEDICINE Yeast with pseudohyphae, UA None seen [facility] DEPARTMENT OF PATHOLOGY AND GENOMIC MEDICINE Specimen Urine Performing Organization Address City/[facility] Phone Number [facility] DEPARTMENT OF PATHOLOGY AND [address] [place] [phone] [place] [address] Hemoglobin A1c (12/12/2017 6:00 AM) Hemoglobin A1C 5.0 4.0 - 5.6 % [facility] DEPARTMENT OF PATHOLOGY Comment: AND GENOMIC MEDICINE HbA1c cutoffs for diagnosing diabetes: 4.0% - 5.6%=normal 5.7% - 6.4%=increased risk for diabetes (prediabetes) >=6.5%=diabetes Goals for glycemic control (ADA 2016) < 7.0%Target for non adults with diabetes. More or less stringent targets may be appropriate for individual patients. <7.5% Target for Children and adolescents with type 1 diabetes. Specimen Blood Performing Organization Address [facility] Phone Number [facility] DEPARTMENT OF PATHOLOGY AND [address] [place], [place] [phone] [facility] Estimated GFR (12/11/2017 7:04 AM) GFR Non Af Amer 82 mL/min/1.73 m2 [facility] DEPARTMENT OF PATHOLOGY AND GENOMIC MEDICINE GFR Af Amer >90 mL/min/1.73 m2 [facility] DEPARTMENT OF Comment: PATHOLOGY AND GENOMIC Chronic kidney disease: <60 mL/min/1.73m2 MEDICINE Kidney failure: <15 mL/min/1.73m2 The estimated GFR is calculated from the IDMS-traceable Modification of Diet in Renal Disease Equation. The accuracy of the calculation is poor when the creatinine is normal. Calculated values >90 mL/min/1.73m2 are not reported. This equation has not been validated in children (<18 years), women, the elderly (>70 years), or ethnic groups other than Caucasians and Americans. Specimen Plasma specimen Performing Organization Address City/State/[facility] Phone Number [facility] DEPARTMENT OF PATHOLOGY AND [address] [place] [phone] [facility] Lipid panel (12/11/2017 7:04 AM) Cholesterol 132 <200 mg/dL [facility] DEPARTMENT OF PATHOLOGY AND GENOMIC MEDICINE Triglycerides 124 <150 mg/dL [facility] DEPARTMENT OF PATHOLOGY AND GENOMIC MEDICINE HDL cholesterol 23 (L) >40 mg/dL [facility] DEPARTMENT OF PATHOLOGY AND GENOMIC MEDICINE LDL cholesterol 83Comment: Result <100 mg/dL [facility] DEPARTMENT OF obtained by direct LDL PATHOLOGY AND GENOMIC measurement MEDICINE Lipid panel interpretation Margo [facility] DEPARTMENT OF Comment: PATHOLOGY AND GENOMIC Total Cholesterol (mg/dL) MEDICINE <200 Desirable 820-991Ouxmibiyyb-kjve >=240High Triglycerides (mg/dL) <150 Normal 233-072Gposwwibbm-ysmy 200-499High >=500Very high HDL Cholesterol (mg/dL) <40Low (male) <40Low (female) LDL Cholesterol (mg/dL) <100 Optimal 100-129Near or above optimal 267-045Rlldvckfzp-aijt 160-189High >=190Very high Risk Catergories that modify LDL goals. Risk CatergoriesLDL goal (mg/dL) CHD and CHD risk equivalent<100 (10-year risk >20%) Multiple (2+) risk factors <130 (10-year risk=<20%) 0-1 risk factors <160 (<10-year risk) Defining levels of lipids in metabolic syndrome Triglycerides>=150 mg/dL HDL Cholesterol Men<40 mg/dL Women<40 mg/dL Non-HDL cholesterol is a second target for therapy in persons with high triglycerides (>=200 mg/dL) Specimen Plasma specimen Performing Organization Address City/State/[facility] Phone Number [facility] DEPARTMENT OF PATHOLOGY AND [address] [place] [phone] [facility] Basic metabolic panel (12/11/2017 7:04 AM) Sodium 138 135 - 148 mEq/L [facility] DEPARTMENT OF PATHOLOGY AND GENOMIC MEDICINE Potassium 3.7 3.5 - 5.0 mEq/L [facility] DEPARTMENT OF PATHOLOGY AND GENOMIC MEDICINE Chloride 104 98 - 112 mEq/L [facility] DEPARTMENT OF PATHOLOGY AND GENOMIC MEDICINE CO2 27 24 - 31 mEq/L [facility] DEPARTMENT OF PATHOLOGY AND GENOMIC MEDICINE Anion gap 7@ANIO 7 - 15 mEq/L [facility] DEPARTMENT OF PATHOLOGY AND GENOMIC MEDICINE BUN 13 6 - 20 mg/dL [facility] DEPARTMENT OF PATHOLOGY AND GENOMIC MEDICINE Creatinine 0.8 0.5 - 0.9 mg/dL [facility] DEPARTMENT OF PATHOLOGY AND GENOMIC MEDICINE Glucose 98 65 - 99 mg/dL [facility] DEPARTMENT OF PATHOLOGY AND GENOMIC MEDICINE Calcium 8.1 (L) 8.3 - 10.2 mg/dL [facility] DEPARTMENT OF PATHOLOGY AND GENOMIC MEDICINE Specimen Plasma specimen Performing Organization Address City/[facility] Phone Number [facility] DEPARTMENT OF PATHOLOGY AND [address] [place] [phone] GENOMIC MEDICINE after 12/23/2016
--- OUTSIDE RECORDS SUMMARY | 2017-12-24 13:36 | XMS REPORT ---
:1985 Author Organization [facility] Address [address] [place] [address] Phone Allergies, Adverse Reactions, Alerts Allergy Name Reaction Description Start Date Severity Status Provider No Known Allergies Bossman Segura Conditions or Problems Problem Name Problem Onset Status Entry Provider Comment Standard Annotate Code Date Date Description Bacterial 616.10 Active Rodari Vaginitis and vaginitis / [place] vulvovaginitis LEGAL PRACTICE MANAGER , unspecified Hepatitis C 070.70 Active Rodari Unspecified / [place]e viral LEGAL PRACTICE MANAGER hepatitis C without hepatic coma BMI 32.0-32.9 Active Rodari Body Mass / Coe Index LEGAL PRACTICE MANAGER 32.0-32.9, adult Breast Exam, V76.19 Active Rodari Other Screening / [place]e screening LEGAL PRACTICE MANAGER breast examination Contraception V25.09 Active Rodari Encounter for counseling / Coe other general LEGAL PRACTICE MANAGER counseling and advice on contraceptive management Depression/anxi 300.4 Active Rodari Dysthymic ety / Coe disorder LEGAL PRACTICE MANAGER Encounter for V05.9 Active Rodari Need for immunization / [place]e prophylactic LEGAL PRACTICE MANAGER vaccination and inoculation against unspecified single disease Obesity Active Rodari Obesity, / Coe unspecified LEGAL PRACTICE MANAGER PTSD 309.81 Active Rodari Posttraumatic / Coe stress LEGAL PRACTICE MANAGER disorder Screening for V73.98 Active Rodari Screening chlamydial / Coe examination disease LEGAL PRACTICE MANAGER for unspecified chlamydial disease Screening for V77.1 Active Rodari Screening for DM / Coe diabetes LEGAL PRACTICE MANAGER mellitus Screening for V77.99 Active Rodari Screening for endocrine / Coe other and disease LEGAL PRACTICE MANAGER unspecified endocrine, nutritional, metabolic, and immunity disorders Screening for V77.91 Active Rodari Screening for lipid disorder / Coe lipoid LEGAL PRACTICE MANAGER disorders Screening for V77.99 Active Rodari Screening for vitamin D / Coe other and deficiency LEGAL PRACTICE MANAGER unspecified endocrine, nutritional, metabolic, and immunity disorders Screening, STD V74.5 Active Rodari Screening [place] examination LEGAL PRACTICE MANAGER for venereal disease Special V73.89 Active Rodari Screening screening [place] examination examination for LEGAL PRACTICE MANAGER for other other specified specified viral diseases viral diseases Well Woman V72.31 Active Rodari Routine / [place] gynecological LEGAL PRACTICE MANAGER examination Medication List Medication Instructions Start Stop Generic NDC Status Provider Patient Date Date Name Instruction FLAGYL 500 MG 1 tab by METRONIDAZOLE 57727850826 Active Rodari Active TABS mouth twice [place] a day for 7 LEGAL PRACTICE MANAGER days FLUCONAZOLE 1 tablet by FLUCONAZOLE 88985603823 Active Rodari Active 150 MG TABS mouth once. Coe Take after LEGAL PRACTICE MANAGER completing your Flagyl. ABILIFY 10 MG 1 tablet by ARIPIPRAZOLE [id number] Active Rodari Active ORAL TABLET mouth daily [place] LEGAL PRACTICE MANAGER LEXAPRO 20 MG 1 By Mouth ESCITALOPRAM 07496213200 Active Rodari Active TABS Every Day OXALATE Coe LEGAL PRACTICE MANAGER TRAZODONE HCL 1 by mouth TRAZODONE HCL 58862950338 Active Rodari Active 150 MG TABS nightly at [place] bedtime LEGAL PRACTICE MANAGER Advance Directives Directive Description Start Date DISCUSSED [...] - Hematology platelet count 167 X10E3/UL 10*3/mm3 640-546 5510/10/11 red blood cell distribution width 13.9 % [...] Internal Correspondence: Pre-Visit Planning - CC care team driver #1, name Marshall Coe. HOSPICE CLINICAL MANAGER Lab Report: CBC With Differential/Platelet, Comp. Metabolic [...] Code Facility New Patient Detailed Marshall Coe LEGAL PRACTICE MANAGER CPT-99940 [facility] 11:51:34 CDT - [address] [facility] Procedures Code Procedure Name Date Entry Date Standard Description CPT-49516 Handling of specimen for transfer 13:11:22 CDT CPT-54188 Venipuncture 13:11:20 CDT CPT-96135 TDAP 11:51:58 CDT CPT-82365 Admin of Vaccine - Injection - Each Add'l 11:51:58 CDT CPT-68779 Hepatitis B - Adult 11:51:58 CDT CPT-86602 Admin of Vaccine - Injection - 1 11:51:58 CDT CPT-76654 Urinalysis - Dip only - In [place] 11:51:36 CDT CPT-91769 Urinalysis - - In [place] 11:51:35 CDT CPT-29617 Handling of specimen for transfer 11:51:35 CDT CPT-68384 Venipuncture 11:51:35 CDT CPT-43567 New Patient Well Exam ( - 38 Yrs) - [address] 11:51:30 CDT CPT-HE001 Health Education/Supportive 14:13:18 CDT Counseling
[2017-12-24 15:09] LABS: Absolute Lymphocytes (CBC) 2.9 K/uL (0.7-4.9); Absolute Monocytes 0.7 K/uL (0.1-1.3); Absolute Neutrophil 5.6 K/uL (1.8-8.0); Basophils % 0.6 % (0-1.3); Eosinophils % 1.5 % (0-4.4); Hematocrit 41.5 % (36.0-45.0); Lymphocytes % 31.3 % (15.3-44.8); MCH 28.8 pg (27.0-35.0); MPV 10.4 fL (7.6-11.3); Monocytes % 6.9 % (3.3-12.3); Protime INR 1.03; RBC Red Blood Cell Count 4.94 M/uL (3.86-4.86)
[2017-12-24 16:12] LABS: ALT/SGPT 31 U/L (12-78); AST/SGOT 22 U/L (15-37); Albumin 3.7 g/dL (3.4-5.0); Alkaline Phosphatase 97 U/L (45-117); BUN Blood Urea Nitrogen 21 mg/dL (7-18); Bicarbonate 28 mmol/L (21-32); Bilirubin Direct 0.3 mg/dL (0-0.2); Bilirubin Total 0.9 mg/dL (0.2-1.0); Glucose Level 81 mg/dL (74-106); Potassium 3.5 mmol/L (3.5-5.1); Protein, Total 8.2 g/dL (6.4-8.2); Sodium Level 141 mmol/L (136-145)
[2017-12-24 16:14] LABS: Alcohol Serum/Plasma 4 mg/dL (<3)
[2017-12-24 16:49] LABS: Urine Blood 2+ (NEG); Urine Glucose NEGATIVE (NEG); Urine Protein 2+ (NEG); Urine pH 5.5 (5.0-7.0)
[2017-12-24 17:24] LABS: Barbiturates NEGATIVE (NEGATIVE); Benzodiazepines NEGATIVE (NEGATIVE); Cocaine POSITIVE (NEGATIVE); METHAMPHETAM POSITIVE (NEGATIVE); Methadone NEGATIVE (NEGATIVE); Opiates NEGATIVE (NEGATIVE); Phencyclidine NEGATIVE (NEGATIVE); THC Cannibis POSITIVE (NEGATIVE)
[2017-12-24] MEDS ORDERED: NA CHLORIDE 0.9% 1,000 ML ONE (17:45)
[2017-12-24 18:16] LABS: Urine RBC <5 /HPF (NONE SEEN)
[2017-12-24 18:17] LABS: Urine Bacteria 20-50 /HPF (<20); Urine Culture Reflex Order REFLEXED; Urine Mucus 2+ /HPF (NONE SEEN)
--- NOTE | 2017-12-25 06:49 | EKG ---
Test Date: 2017-12-24 Test Time: 14:31:16 Drug Abuse Resistance Education Officer: CHEN MEASUREMENT RESULTS: Intervals: Rate: 53 KS: 120 QRSD: 74 QT: 436 QTc: 409 [place]: P: 27 KS: 120 QRS: 52 T: 52 INTERPRETIVE STATEMENTS: Sinus bradycardia with sinus arrhythmia Otherwise normal ECG Compared to ECG 12/05/2017 05:40:07 Sinus rhythm no longer present Electronically Signed On 12-25-17 06:48:33 CDT by Arnie Strickland
--- NOTE | 2017-12-25 07:15 | ER ---
Nurse's Notes [facility] Name: Araceli Hunter Age: 32 yrs Sex: Female : 1985 Arrival Date: 12/24/2017 Time: 13:44 Bed 18 Private MD: Diagnosis: Bipolar disorder;Post-traumatic stress disorder, chronic;Abuse of non-psychoactive substances;Cystitis Presentation: 12/24 13:44 Presenting complaint: EMS states: Transported from long term after making claims that she aj would hang herself if she missed her son's birthday on Sunday. EOD written by NATE LOVETT. Transition of care: patient was not received from another setting of care. Onset of symptoms was December 24, 2017. Risk Assessment: Do you want to hurt yourself or someone else? Patient reports desire/thoughts of hurting themselves or someone else. Provider notified. Initial Sepsis Screen: Does the patient meet any 2 criteria? No. Patient's initial sepsis screen is negative. Does the patient have a suspected source of infection? No. Patient's initial sepsis screen is negative. Care prior to arrival: None. 13:44 Method Of Arrival: EMS: [facility] 13:44 Acuity: ANA MARIA 2 aj Triage Assessment: 13:47 General: Appears in no apparent distress. comfortable, Behavior is calm, cooperative, aj appropriate for age. Pain: Denies pain. Neuro: Level of Consciousness is awake, alert, obeys commands, Oriented to person, place, time, situation. Respiratory: Airway is patent Respiratory effort is even, unlabored, Respiratory pattern is regular, symmetrical. Derm: Skin is intact, is healthy with good turgor, Skin is pink, warm \\T\\ dry. normal, sores to bilateral cheeks. [employer]: 13:47 LMP 12/24/2017 aj Historical: - Allergies: 13:47 No Known Allergies; aj - Home Meds: 13:47 Zyprexa Oral [Active]; Lexapro Oral [Active]; aj - PMHx: 13:47 Bipolar disorder; Schizophrenia; PTSD; Anxiety; aj - PSHx: 13:47 None; aj - Immunization history:: Adult Immunizations up to date. - Social history:: Smoking status: Patient uses tobacco products, smokes one pack cigarettes per day. Patient uses street drugs, marijuana, Methamphetamine (Meth). - Ebola Screening: : Patient negative for fever greater than or equal to 101.5 degrees Fahrenheit, and additional compatible Ebola Virus Disease symptoms Patient denies exposure to infectious person Patient denies travel to an Ebola-affected area in the 21 days before illness onset No symptoms or risks identified at this time. Screenin:19 Abuse screen: Denies threats or abuse. Denies injuries from another. Nutritional aj screening: No deficits noted. Tuberculosis screening: No symptoms or risk factors identified. Fall Risk None identified. Assessment: 14:18 Reassessment: Patient stated to physician, "Y'all can try to admit me but I am going to aj go see my son on Sunday.". 20:22 Reassessment: Patient appears in no apparent distress at this time. No changes from aj previously documented assessment. Patient and/or family updated on plan of care and expected duration. Pain level reassessed. Patient is alert, oriented x 3, equal unlabored respirations, skin warm/dry/pink. [facility] at bedside. 21:01 General: Appears in no apparent distress. Behavior is calm, cooperative. Pain: Denies lp1 pain. Neuro: Level of Consciousness is awake, alert, obeys commands. Cardiovascular: Patient's skin is warm and dry. Respiratory: Respiratory effort is even, unlabored. GI: No deficits noted. : No deficits noted. EENT: No deficits noted. Derm: Skin is pink, warm \\T\\ dry. Musculoskeletal: Circulation, motion, and sensation intact. 21:39 Reassessment: Patient given sandwich at this time. lp1 23:00 Reassessment: Patient resting, eyes closed, respirations unlabored. lp1 08 00:00 Reassessment: Patient appears in no apparent distress at this time. No changes from lp1 previously documented assessment. 01:10 Reassessment: Patient appears in no apparent distress at this time. No changes from lp1 previously documented assessment. Patient and/or family updated on plan of care and expected duration. Pain level reassessed. 02:30 Reassessment: No changes from previously documented assessment. lp1 03:30 Reassessment: No changes from previously documented assessment. lp1 04:30 Reassessment: No changes from previously documented assessment. lp1 05:30 Reassessment: No changes from previously documented assessment. lp1 07:00 General: Appears in no apparent distress. comfortable, Behavior is calm, cooperative. rb1 Pain: Denies pain. Neuro: Level of Consciousness is awake, alert, obeys commands, Oriented to person, place, time, situation, Pt. denies wanting to hurt herself or anyone else.. Cardiovascular: Capillary refill < 3 seconds is brisk in bilateral fingers. Respiratory: Airway is patent Respiratory effort is even, unlabored, Respiratory pattern is regular, symmetrical. GI: No signs and/or symptoms were reported involving the gastrointestinal system. : No signs and/or symptoms were reported regarding the genitourinary system. Derm: Skin is pink, warm \\T\\ dry. Musculoskeletal: Range of motion: intact in all extremities. 08:00 Reassessment: Patient appears in no apparent distress at this time. No changes from rb1 previously documented assessment. Psych: 12/24 13:44 Subjective: Patient's mood is irritable, Delusions are denied, Hallucinations are aj denied Having thoughts of suicide. States ,"I will kill myself any way and every way I can, with anything I can get my hands on.". Objective: Patient is belligerent, irritable, Speech is normal, Affect is appropriate. Interventions: Removed personal items and placed in bag. Patient placed in hospital gown. Searched person for dangerous items. Suicide Risk Assessment: Sad Person Scale: Sex of patient: Female: Score 0 points. Age of patient: Score 1 point if patient 15-34. Depression: Score 1 point if signs of depression are present. Previous Attempt: Score 1 point if patient has previously attempted suicide. Substance Abuse: Score 1 point if patient abuses alcohol or drugs. Rational Thinking: Score 0 point if patient has rational thinking. Social Support: Score 1 point if social support is lacking and/or unavailable. Organized Plan: Score 0 if patient did not have an organized plan in place. Relationship: Score 1 point if patient is , , , or for a single male Chronic Sickness: Score 0 point if patient does not have a chronic illness, debilitating, or severe disorder. Safety Checks: Personal items have been removed. Door is closed to patient's room. No visitors are present at this time. Patient uses marijuana daily Patient uses methamphetamines daily. Commitment: Patient will be an involuntary commitment. Vital Signs: 13:47 BP 120 / 86; Pulse 67; Resp 20; Temp 99.0; Pulse Ox 99% on R/A; Weight 55.79 kg; Height aj 4 ft. 11 in. (149.86 cm); 17:58 BP 117 / 84; Pulse 64; Resp 16; Pulse Ox 99% on R/A; aj 20:00 BP 113 / 70; Pulse 68; Resp 18; Temp 97.8; Pulse Ox 99% ; an 23:55 BP 94 / 66; Pulse 57; Resp 18; Temp 97.8; Pulse Ox 99% ; an 12/25 04:00 BP 120 / 86 RA (auto/reg); Pulse 67; Resp 20 S; Pulse Ox 100% on R/A; jw5 07:30 BP 122 / 79; Pulse 66; Resp 17; Pulse Ox 99% on R/A; rb1 12/24 13:47 Body Mass Index 24.84 (55.79 kg, 149.86 cm) ED Course: 12/24 13:44 Patient arrived in ED. ss 13:44 Patricia Celeste, RN is Primary Nurse. aj 13:46 Triage completed. aj 13:47 Safety checks: Items removed: yes. Door open/sign placed on door: yes. Family/friend ag present: no. Sitter present: Yes. 13:47 Arm band placed on right wrist. Patient placed in an exam room. aj 13:48 Chris García MD is Attending Physician. gs 13:48 Patient has correct armband on for positive identification. ag 14:00 Safety checks: Items removed: yes. Door open/sign placed on door: yes. Family/friend mh5 present: no. Sitter present: Yes. 14:09 Warm blanket given. mh5 14:15 Safety checks: Items removed: yes. Door open/sign placed on door: yes. Family/friend mh5 present: no. Sitter present: Yes. 14:30 Safety checks: Items removed: yes. Door open/sign placed on door: yes. Family/friend mh5 present: no. Sitter present: Yes. 14:43 EKG done, by bio medical technician. reviewed by Chris García MD. 3 14:45 Safety checks: Items removed: yes. Door open/sign placed on door: yes. Family/friend ag present: no. Sitter present: Yes. 14:51 Initial lab(s) drawn, by me, sent to lab. Inserted saline lock: 20 gauge in right 5 antecubital area, using aseptic technique. Blood collected. 14:52 Basic Metabolic Panel Sent. [facility] 14:52 Acetaminophen Sent. [facility] 14:52 CBC with Diff Sent. [facility] 14:52 ETOH Level Sent. [facility] 14:52 Hepatic Function Sent. [facility] 14:52 PT-INR Sent. [facility] 14:52 Salicylate Sent. [facility] 15:00 Safety checks: Items removed: yes. Door open/sign placed on door: yes. Family/friend mh5 present: no. Sitter present: Yes. 15:15 Safety checks: Items removed: yes. Door open/sign placed on door: yes. Family/friend ag present: no. Sitter present: Yes. 15:30 Safety checks: Items removed: yes. Door open/sign placed on door: yes. Family/friend ag present: no. Sitter present: Yes. 15:45 Safety checks: Items removed: yes. Door open/sign placed on door: yes. Family/friend ag present: no. Sitter present: Yes. 15:45 Patient is sleeping. ag 16:00 Safety checks: Items removed: yes. Door open/sign placed on door: yes. Family/friend ag present: no. Sitter present: Yes. 16:15 Safety checks: Items removed: yes. Door open/sign placed on door: yes. Family/friend ag present: no. Sitter present: Yes. 16:30 Safety checks: Items removed: yes. Door open/sign placed on door: yes. Family/friend ag present: no. Sitter present: Yes. 16:40 Straight cath inserted, using sterile technique, 16 Fr. Specimen obtained. aj 16:45 Safety checks: Items removed: yes. Door open/sign placed on door: yes. Family/friend ag present: no. Sitter present: Yes. 17:00 Safety checks: Items removed: yes. Door open/sign placed on door: yes. Family/friend ag present: no. Sitter present: Yes. 17:15 Safety checks: Items removed: yes. Door open/sign placed on door: yes. Family/friend ag present: no. Sitter present: Yes. 17:30 Safety checks: Items removed: yes. Door open/sign placed on door: yes. Family/friend ag present: no. Sitter present: Yes. 17:45 Safety checks: Items removed: yes. Door open/sign placed on door: yes. Family/friend ag present: no. Sitter present: Yes. 17:50 called and spoke with Meghana at the [facility] to page out a screener to come eb evaluate our patient for possible patient transfer. 18:00 Safety checks: Items removed: yes. Door open/sign placed on door: yes. Family/friend ag present: no. Sitter present: Yes. 18:15 Safety checks: Items removed: yes. Door open/sign placed on door: yes. Family/friend ag present: no. Sitter present: Yes. 18:30 Safety checks: Items removed: yes. Door open/sign placed on door: yes. Family/friend ag present: no. Sitter present: Yes. 18:45 Safety checks: Items removed: yes. Door open/sign placed on door: yes. Family/friend ag present: no. Sitter present: Yes. 19:00 Safety checks: Items removed: yes. Door open/sign placed on door: yes. Family/friend ag present: no. Sitter present: Yes. 19:15 Safety checks: Items removed: yes. Door open/sign placed on door: yes. Family/friend an present: no. Sitter present: Yes. 19:30 Safety checks: Items removed: yes. Door open/sign placed on door: yes. Family/friend an present: no. Sitter present: Yes. 19:45 Safety checks: Items removed: yes. Door open/sign placed on door: yes. Family/friend an present: no. Sitter present: Yes. 20:00 Safety checks: Items removed: yes. Door open/sign placed on door: yes. Family/friend an present: no. Sitter present: Yes. 20:15 Safety checks: Items removed: yes. Safety checks: Door open/sign placed on door: yes. an Family/friend present: no. Sitter present: Yes. 20:30 Safety checks: Items removed: yes. Door open/sign placed on door: yes. Family/friend an present: no. Sitter present: Yes. 20:45 Safety checks: Items removed: yes. Door open/sign placed on door: yes. Family/friend an present: no. Sitter present: Yes. 21:00 Safety checks: Items removed: yes. Door open/sign placed on door: yes. Family/friend an present: no. Sitter present: Yes. 21:01 Corinne Boateng RN is Primary Nurse. lp1 21:02 Report received from Patricia Celeste RN. lp1 21:02 No provider procedures requiring assistance completed. lp1 21:15 Safety checks: Items removed: yes. Door open/sign placed on door: yes. Family/friend an present: no. Sitter present: Yes. 21:30 Safety checks: Items removed: yes. Door open/sign placed on door: yes. Family/friend an present: no. Sitter present: Yes. 21:45 Safety checks: Items removed: yes. Door open/sign placed on door: yes. Family/friend an present: no. Sitter present: Yes. 22:00 Safety checks: Items removed: yes. Door open/sign placed on door: yes. Family/friend an present: no. Sitter present: Yes. 22:15 Safety checks: Items removed: yes. Door open/sign placed on door: yes. Family/friend an present: no. Sitter present: Yes. 22:30 Safety checks: Items removed: yes. Door open/sign placed on door: yes. Family/friend an present: no. Sitter present: Yes. 22:45 Safety checks: Items removed: yes. Door open/sign placed on door: yes. Family/friend an present: no. Sitter present: Yes. 23:00 Safety checks: Items removed: yes. Door open/sign placed on door: yes. Family/friend an present: no. Sitter present: Yes. 23:15 Safety checks: Items removed: yes. Door open/sign placed on door: yes. Family/friend an present: no. Sitter present: Yes. 23:30 Safety checks: Door open/sign placed on door: yes. Family/friend present: no. Sitter an present: Yes. 23:45 Safety checks: Items removed: yes. Door open/sign placed on door: yes. Family/friend an present: no. Sitter present: Yes. 12/25 00:00 Safety checks: Items removed: yes. Door open/sign placed on door: yes. Family/friend an present: no. Sitter present: Yes. 00:15 Safety Checks: Personal items have been removed. The door is open or patient has been lp1 placed in a hallway bed/chair. There are no family/friend visitors at this time Sitter present at this time. 00:15 Safety checks: Items removed: yes. Door open/sign placed on door: yes. Family/friend an present: no. Sitter present: Yes. 00:30 Safety Checks: Personal items have been removed. The door is open or patient has been lp1 placed in a hallway bed/chair. There are no family/friend visitors at this time Sitter present at this time. 00:30 Safety checks: Items removed: yes. Door open/sign placed on door: yes. Family/friend an present: no. Sitter present: Yes. 00:45 Safety Checks: Personal items have been removed. The door is open or patient has been lp1 placed in a hallway bed/chair. There are no family/friend visitors at this time Sitter present at this time. 00:45 Safety checks: Items removed: yes. Door open/sign placed on door: yes. Family/friend an present: no. Sitter present: Yes. 01:00 Safety Checks: Personal items have been removed. The door is open or patient has been lp1 placed in a hallway bed/chair. There are no family/friend visitors at this time Sitter present at this time. 01:00 Safety checks: Items removed: yes. Door open/sign placed on door: yes. Family/friend an present: no. Sitter present: Yes. 01:15 Safety Checks: Personal items have been removed. The door is open or patient has been lp1 placed in a hallway bed/chair. There are no family/friend visitors at this time Sitter present at this time. 01:15 Safety checks: Items removed: yes. Door open/sign placed on door: yes. Family/friend an present: no. Sitter present: Yes. 01:30 Safety Checks: Personal items have been removed. The door is open or patient has been lp1 placed in a hallway bed/chair. There are no family/friend visitors at this time Sitter present at this time. 01:30 Safety checks: Items removed: yes. Door open/sign placed on door: yes. Family/friend an present: no. Sitter present: Yes. 01:45 Safety Checks: Personal items have been removed. The door is open or patient has been lp1 placed in a hallway bed/chair. There are no family/friend visitors at this time Sitter present at this time. 01:45 Safety checks: Items removed: yes. Door open/sign placed on door: yes. Family/friend an present: no. Sitter present: Yes. 02:00 Safety checks: Items removed: yes. Door open/sign placed on door: yes. Family/friend an present: no. Sitter present: Yes. 02:15 Safety checks: Items removed: yes. Door open/sign placed on door: yes. Family/friend an present: no. Sitter present: Yes. 02:30 Safety checks: Items removed: yes. Door open/sign placed on door: yes. Family/friend jw5 present: no. Sitter present: Yes. 02:45 Safety checks: Items removed: yes. Door open/sign placed on door: yes. Family/friend jw5 present: Sitter present: Yes. 03:00 Safety checks: Items removed: yes. Door open/sign placed on door: yes. Family/friend jw5 present: no. Sitter present: Yes. 03:15 Safety checks: Items removed: yes. Door open/sign placed on door: yes. Family/friend jw5 present: no. Sitter present: Yes. 03:30 Safety checks: Items removed: yes. Door open/sign placed on door: yes. Family/friend jw5 present: no. Sitter present: Yes. 03:45 Safety checks: Items removed: yes. Door open/sign placed on door: yes. Family/friend jw5 present: no. Sitter present: Yes. 04:00 Safety checks: Door open/sign placed on door: yes. Family/friend present: no. Sitter jw5 present: Yes. 04:15 Safety checks: Items removed: yes. Door open/sign placed on door: yes. Family/friend jw5 present: no. Sitter present: Yes. 04:30 Safety checks: Items removed: yes. Door open/sign placed on door: yes. Family/friend jw5 present: no. Sitter present: Yes. 04:45 Safety checks: Items removed: yes. Door open/sign placed on door: yes. Family/friend jw5 present: no. Sitter present: Yes. 05:00 Safety checks: Items removed: yes. Door open/sign placed on door: yes. Family/friend jw5 present: no. Sitter present: Yes. 05:15 Safety checks: Items removed: yes. Door open/sign placed on door: yes. Family/friend jw5 present: no. Sitter present: Yes. 05:30 Safety checks: Items removed: yes. Door open/sign placed on door: yes. Family/friend jw5 present: no. Sitter present: Yes. 05:45 Safety checks: Items removed: yes. Door open/sign placed on door: yes. Family/friend jw5 present: no. Sitter present: Yes. 06:00 Safety checks: Items removed: yes. Door open/sign placed on door: yes. Family/friend jw5 present: no. Sitter present: Yes. 06:15 Safety checks: Items removed: yes. Door open/sign placed on door: yes. Family/friend jw5 present: no. Sitter present: Yes. 06:30 Safety checks: Items removed: yes. Door open/sign placed on door: yes. Family/friend jw5 present: no. Sitter present: Yes. 06:45 Safety checks: Items removed: yes. Door open/sign placed on door: yes. Family/friend jw5 present: no. Sitter present: Yes. 07:00 Safety Checks: Personal items have been removed. The door is open or patient has been rb1 placed in a hallway bed/chair. There are no family/friend visitors at this time Sitter present at this time. 07:00 Safety checks: Items removed: yes. Door open/sign placed on door: yes. Family/friend jw5 present: no. Sitter present: Yes. 07:07 Attending Physician role handed off by Chris García MD [facility] 07:07 Ricardo Mai MD is Attending Physician. [facility] 07:15 Safety Checks: Personal items have been removed. The door is open or patient has been rb1 placed in a hallway bed/chair. There are no family/friend visitors at this time Sitter present at this time. 07:30 Safety Checks: Personal items have been removed. The door is open or patient has been rb1 placed in a hallway bed/chair. There are no family/friend visitors at this time Sitter present at this time. 07:45 Safety Checks: Personal items have been removed. The door is open or patient has been rb1 placed in a hallway bed/chair. There are no family/friend visitors at this time Sitter present at this time. 07:45 IV discontinued, intact, bleeding controlled, No redness/swelling at site. Pressure rb1 dressing applied. Administered Medications: 12/24 17:47 Drug: NS 0.9% 1000 ml Route: IV; Rate: 1 bolus; Site: right antecubital; 12/25 07:10 Drug: Rocephin - (cefTRIAXone) 1 grams Route: IVPB; Infused Over: 30 mins; Site: right rb1 antecubital; 07:40 Follow up: Response: No adverse reaction; IV Status: Completed infusion rb1 Outcome: 07:15 Discharge ordered by . cali 07:45 Discharged to home ambulatory. [facility] 07:45 Condition: stable 07:45 Discharge instructions given to patient, Instructed on discharge instructions, follow up and referral plans. medication usage, Demonstrated understanding of instructions, follow-up care, medications, Prescriptions given X 1. 07:52 Patient left the ED. rb1 Addendum: 12/27/2017 07:38 Addendum: Culture Results: Positive urine culture. No further action required. Bacteria i w sensitive to prescribed antibiotic. Signatures: Patricia Celeste RN RN aj Anderson, Corey, MD MD cha Williams, Irene, RN RN Chloe Jaime RN RN ss Corinne Boateng RN RN lp1 Laura Cid Rebecca, RN RN [facility] Mary Moffett Chris Washington MD MD gs Wiley, Maru 5 Corrine Zaldivar Aleksei an Montes, Shakira 3 Corrections: (The following items were deleted from the chart) 12/25 06:20 06:18 Safety checks: Items removed: yes. Door open/sign placed on door: yes. jw5 Family/friend present: no. Sitter present: Yes. jw5 07:39 07:00 Neuro: Level of Consciousness is awake, alert, obeys commands, Oriented to rb1 person, place, time, situation, rb1 08:23 08:13 Patient left the ED. rb1 rb1
--- NOTE | 2017-12-25 07:15 | EDPHYS ---
Physician Documentation [facility] Name: Araceli Hunter Age: 32 yrs Sex: Female : 1985 Arrival Date: 12/24/2017 Time: 13:44 Bed 18 Private MD: ED Physician Ricardo Mai HPI: 12/24 19:11 This 32 yrs old Female presents to ER via EMS with complaints of Suicidal gs Ideation. 19:11 The patient presents to the emergency department with depression, psychosis, suicide gs ideation, and the patient has a plan, to overdose with medications. Onset: The symptoms/episode began/occurred today. Associated signs and symptoms: Pertinent positives; delusions, paranoia, substance abuse, suicide ideation, Pertinent negatives: fever. Severity of symptoms: At their worst the symptoms were moderate in the emergency department the symptoms are unchanged. The patient has experienced similar episodes in the past, a few times. The patient has been recently seen by a physician: psych unit at [facility]. 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 - Social history:: Smoking status: Patient uses tobacco products, smokes one pack cigarettes per day. Patient uses street drugs, marijuana, Methamphetamine (Meth). - Ebola Screening: : Patient negative for fever greater than or equal to 101.5 degrees Fahrenheit, and additional compatible Ebola Virus Disease symptoms Patient denies exposure to infectious person Patient denies travel to an Ebola-affected area in the 21 days before illness onset No symptoms or risks identified at this time. ROS: 19:11 All other systems are negative. gs 12/25 07:08 Constitutional: Negative for fever, chills, and weight loss, Eyes: Negative for injury, cali pain, redness, and discharge, ENT: Negative for injury, pain, and discharge, Neck: Negative for injury, pain, and swelling, Cardiovascular: Negative for chest pain, palpitations, and edema, Respiratory: Negative for shortness of breath, cough, wheezing, and pleuritic chest pain, Abdomen/GI: Negative for abdominal pain, nausea, vomiting, diarrhea, and constipation, Back: Negative for injury and pain, : Negative for injury, bleeding, discharge, and swelling, MS/Extremity: Negative for injury and deformity, Skin: Negative for injury, rash, and discoloration, Neuro: Negative for headache, weakness, numbness, tingling, and seizure, Allergy/Immunology: Negative for hives, rash, and allergies, Endocrine: Negative for neck swelling, polydipsia, polyuria, polyphagia, and marked weight changes, Hematologic/Lymphatic: Negative for swollen nodes, abnormal bleeding, and unusual bruising. Psych: Positive for anxiety, suicidal ideation. Exam: 12/24 19:11 Head/Face: Normocephalic, atraumatic. Eyes: Pupils equal round and reactive to light, gs extra-ocular motions intact. Lids and lashes normal. Conjunctiva and sclera are non-icteric and not injected. Cornea within normal limits. Periorbital areas with no swelling, redness, or edema. ENT: Nares patent. No nasal discharge, no septal abnormalities noted. Tympanic membranes are normal and external auditory canals are clear. Oropharynx with no redness, swelling, or masses, exudates, or evidence of obstruction, uvula midline. Mucous membranes moist. Neck: Trachea midline, no thyromegaly or masses palpated, and no cervical lymphadenopathy. Supple, full range of motion without nuchal rigidity, or vertebral point tenderness. No Meningismus. Chest/axilla: Normal chest wall appearance and motion. Nontender with no deformity. No lesions are appreciated. Cardiovascular: Regular rate and rhythm with a normal S1 and S2. No gallops, murmurs, or rubs. Normal PMI, no JVD. No pulse deficits. Respiratory: Lungs have equal breath sounds bilaterally, clear to auscultation and percussion. No rales, rhonchi or wheezes noted. No increased work of breathing, no retractions or nasal flaring. Abdomen/GI: Soft, non-tender, with normal bowel sounds. No distension or tympany. No guarding or rebound. No evidence of tenderness throughout. Back: No spinal tenderness. No costovertebral tenderness. Full range of motion. Skin: Warm, dry with normal turgor. Normal color with no rashes, no lesions, and no evidence of cellulitis. MS/ Extremity: Pulses equal, no cyanosis. Neurovascular intact. Full, normal range of motion. Constitutional: The patient appears alert, awake. Neuro: Orientation: to person, place, time \T\ situation. Cranial nerves: CN II- XII are normal as tested, Cerebellar function: is grossly normal, Motor: strength is 5/5 in all extremities, Sensation: no obvious gross deficits. Psych: Behavior/mood is suicidal, depressed, Affect is animated, Oriented to person, place, time, Patient having thoughts of suicide. Judgement / Insight is impaired. Delusions/hallucinations are present and described as shahnaz steele tried to attach probe to her head. 12/25 07:08 Constitutional: This is a well developed, well nourished patient who is awake, alert, cali and in no acute distress. Psych: Behavior/mood is Affect is Oriented to Judgement / Insight is normal. Vital Signs: 12/24 13:47 BP 120 / 86; Pulse 67; Resp 20; Temp 99.0; Pulse Ox 99% on R/A; Weight 55.79 kg; Height aj 4 ft. 11 in. (149.86 cm); 17:58 BP 117 / 84; Pulse 64; Resp 16; Pulse Ox 99% on R/A; aj 20:00 BP 113 / 70; Pulse 68; Resp 18; Temp 97.8; Pulse Ox 99% ; an 23:55 BP 94 / 66; Pulse 57; Resp 18; Temp 97.8; Pulse Ox 99% ; an 12/25 04:00 BP 120 / 86 RA (auto/reg); Pulse 67; Resp 20 S; Pulse Ox 100% on R/A; jw5 07:30 BP 122 / 79; Pulse 66; Resp 17; Pulse Ox 99% on R/A; rb1 12/24 13:47 Body Mass Index 24.84 (55.79 kg, 149.86 cm) aj MDM: 12/24 14:02 Patient medically screened. 12/25 07:10 Data reviewed: vital signs, nurses notes, lab test result(s), EKG. [facility] 12/24 14:23 Order name: Acetaminophen; Complete Time: 17:37 12/24 14:23 Order name: Basic Metabolic Panel; Complete Time: 17:37 12/24 14:23 Order name: CBC with Diff; Complete Time: 17:37 12/24 14:23 Order name: ETOH Level; Complete Time: 17:37 12/24 14:23 Order name: Hepatic Function; Complete Time: 17:37 12/24 14:23 Order name: PT-INR; Complete Time: 17:37 12/24 14:23 Order name: Salicylate; Complete Time: 17:37 12/24 14:23 Order name: Urine Drug Screen; Complete Time: 17:37 12/24 16:42 Order name: Urine Dipstick--Ancillary (enter results); Complete Time: 17:37 12/24 16:42 Order name: Urine --Ancillary (enter results); Complete Time: 17:37 12/24 17:37 Order name: Urine Microscopic Only; Complete Time: 06:54 12/24 18:19 Order name: Urine Culture EDIA 12/25 06:56 Order name: Urine Culture [facility] 12/24 14:23 Order name: EKG; Complete Time: 14:24 12/24 14:23 Order name: EKG - Nurse/Tech; Complete Time: 14:29 12/24 14:23 Order name: IV Saline Lock; Complete Time: 14:53 12/24 14:23 Order name: Labs collected and sent; Complete Time: 14:53 12/24 14:23 Order name: Urine Dipstick-Ancillary (obtain specimen); Complete Time: 16:41 gs Administered Medications: 12/24 17:47 Drug: NS 0.9% 1000 ml Route: IV; Rate: 1 bolus; Site: right antecubital; 12/25 07:10 Drug: Rocephin - (cefTRIAXone) 1 grams Route: IVPB; Infused Over: 30 mins; Site: right rb1 antecubital; 07:40 Follow up: Response: No adverse reaction; IV Status: Completed infusion rb1 Disposition: 12/25/17 07:15 Discharged to Home. Impression: Bipolar disorder, Post-traumatic stress disorder, chronic, Abuse of non-psychoactive substances, Cystitis. - Condition is Stable. - Discharge Instructions: Dysuria, Bipolar Disorder, Substance Use Disorder, Posttraumatic Stress Disorder, Suicidal Feelings: How to Help Yourself, Helping Someone Who is Suicidal. - Prescriptions for Bactrim DS 800- 160 mg Oral Tablet - take 1 tablet by ORAL route every 12 hours for 7 days; 14 tablet. - Medication Reconciliation Form, Thank You Letter, Antibiotic Education, Prescription Opioid Use form. - Follow up: Private Physician; When: 2 - 3 days; Reason: Recheck today's complaints, Continuance of care, Re-evaluation by your physician. - Problem is new. - Symptoms have improved. Signatures: Dispatcher [employer] EDPatricia Fajardo RN RN aj Anderson, Corey, MD MD cha Barber, Rebecca, RN RN rb1 Starr, Gregory, MD MD gs Corrections: (The following items were deleted from the chart) 08:13 07:15 12/25/2017 07:15 Discharged to Home. Impression: Bipolar disorder; Post-traumatic rb1 stress disorder, chronic; Abuse of non-psychoactive substances; Cystitis. Condition is Stable. Forms are Medication Reconciliation Form, Thank You Letter, Antibiotic Education, Prescription Opioid Use. Follow up: Private Physician; When: 2 - 3 days; Reason: Recheck today's complaints, Continuance of care, Re-evaluation by your physician. Problem is new. Symptoms have improved. cali
[2017-12-25] MEDS ORDERED: CEFTRIAXONE/SWI 1gm 1 GM/10 ML SYR ONE (07:19)
== END 2017-12-25 08:13 | disposition home or self-care (01) ==
LOC: ER 13:34
DX: F31.9 Bipolar disorder, unspecified (principal); F43.10 Post-traumatic stress disorder, unspecified; F55.8 Abuse of other non-psychoactive substances; N30.90 Cystitis, unspecified without hematuria; F17.210 Nicotine dependence, cigarettes, uncomplicated
CPT/HCPCS: 36415; 51702; 80048; 80076; 80307; 80320; 80329; 81003; 81015; 81025; 85025; 85610; 87077; 87086; 87088; 87186; 93005; 96365; 99285; J0696; J7030

== ENCOUNTER 2019-09-13 13:22 | Emergency (ER) | payer SELFPAY ==
--- OUTSIDE RECORDS SUMMARY | 2019-09-13 13:24 | XMS REPORT ---
:1985 Author Organization [facility] Address [address] [place] [address] Phone Allergies, Adverse Reactions, Alerts Allergy Name Reaction Description Start Date Severity Status Pr ovider No Known Allergies Quinze tta Colton Conditions or Problems Problem Name Problem Onset Status Entry Provider Comment Standard A nnotate Code Date Date Description Bacterial 616.10 Active Rodari Vaginitis and vaginitis / Coe vulvovaginitis GRADUATE ASSISTANT , unspecified Hepatitis C 070.70 Active Rodari Unspecified / Coe viral GRADUATE ASSISTANT hepatitis C without hepatic coma BMI 32.0-32.9 Active Rodari Body Mass / Coe Index GRADUATE ASSISTANT 32.0-32.9, adult Breast Exam, V76.19 Active Rodari Other Screening / Coe screening GRADUATE ASSISTANT breast examination Contraception V25.09 Active Rodari Encounter for counseling / Coe other general GRADUATE ASSISTANT counseling and advice on contraceptive management Depression/anxi 300.4 Active Rodari Dysthymi c ety / Coe disorder GRADUATE ASSISTANT Encounter for V05.9 Active Rodari Need for immunization / Coe prophylacti c GRADUATE ASSISTANT vaccination and inoculation against unspecified single disease Obesity Active Rodari Obesity, / Coe unspecified GRADUATE ASSISTANT PTSD 309.81 Active Rodari Posttraumatic / Saravanan stress GRADUATE ASSISTANT disorder Screening for V73.98 Active Rodari Screening chlamydial / Coe examination disease GRADUATE ASSISTANT for unspecified chlamydial disease Screening for V77.1 Active Rodari Screening for DM / Coe diabetes GRADUATE ASSISTANT mellitus Screening for V77.99 Active Rodari Screening for endocrine / [place] other and disease GRADUATE ASSISTANT unspecified endocrine, nutritional, metabolic, and immunity disorders Screening for V77.91 Active Rodari Screening for lipid disorder / Coe lipoid GRADUATE ASSISTANT disorders Screening for V77.99 Active Rodari Screening for vitamin D / Coe other and deficiency GRADUATE ASSISTANT unspecified endocrine, nutritional, metabolic, and immunity disorders Screening, STD V74.5 Active Rodari Screening Coe examination GRADUATE ASSISTANT for venereal disease Special V73.89 Active Rodari Screening screening Coe examination examination for GRADUATE ASSISTANT for othe r other specified specifie d viral diseases viral dis eases Well Woman V72.31 Active Rodari Routine / [place] gynecological GRADUATE ASSISTANT examination Medication List Medication Instructions Start Stop Generic NDC Status Provider Patient Date Date Name Instruct ion FLAGYL 500 MG 1 tab by METRONIDAZOLE 41052902826 Active Rodari Active TABS mouth twice Coe a day for 7 GRADUATE ASSISTANT days FLUCONAZOLE 1 tablet by FLUCONAZOLE 14365708334 Active Rodari Active 150 MG TABS mouth once. Coe Take after GRADUATE ASSISTANT completing your Flagyl. ABILIFY 10 MG 1 tablet by ARIPIPRAZOLE 31207320678 Acti ve Rodari Active ORAL TABLET mouth daily [place] GRADUATE ASSISTANT LEXAPRO 20 MG 1 By Mouth ESCITALOPRAM 28402286795 Activ e Rodari Active TABS Every Day OXALATE [place] GRADUATE ASSISTANT TRAZODONE HCL 1 by mouth TRAZODONE HCL 15442611634 Acti ve Rodari Active 150 MG TABS nightly at [place] bedtime GRADUATE ASSISTANT Advance Directives Directive Description Start Date DISCUSSED - NO DECISION MADE Immunizations Vaccine Administration Date Value Standard Macario cription hepatitis B vaccine #1 given given hep atitis B vaccine, unspecified form ulation Tetanus toxoid, reduced given tetanus toxoid, reduced diphtheria toxoid and diphtheria toxoid, and acellular Pertussis vaccine, estella llular pertussis vaccine, absorbed (TdaP) given adsorbed Vital Signs Date Name Value Unit Range Description blood pressure, diastolic 75 mm[Hg] BP gamboa blood pressure, systolic 117 mm[Hg] BP sys height E&M 60 [in_us] Bdy height pulse rate E&M 64 /min Heart rate temperature E&M 98.2 [degF] Body temp erature weight E&M 165 [lb_av] Weight Measure d Diagnostic Results Date Name Value Unit Range Description Lab Report: CBC With Differential/Platel et, Comp. Metabolic Panel (14), ... - Serology hepatitis C antibody, serum >11.0 0.0-0.9 Office Visit: Annual / [employer] without PAP/ DEPO-Brith Control/ Vaccine Rm# 14 vac - Urinalysis pH, urine, semiquantitative 6.0 Lab Report: CBC With Differential/Platel et, Comp. Metabolic Panel (14), ... - Hematology lymphocyte count, blood, automated 2.6 X10E3/UL 10*3/mm3 0.7-3.1 Office Visit: Annual / [employer] without PAP/ DEPO-Brith Control/ Vaccine Rm# 14 vac - Urinalysis bilirubin, urine negative Lab Report: CBC With Differential/Platel et, Comp. Metabolic Panel (14), ... - Chemistry urea nitrogen, blood 14 mg/dL 6-20 creatinine, serum 0.81 mg/dL 0.57-1.00 chloride, serum 102 mmol/L 96-106 Lab Report: CBC With Differential/Platel et, Comp. Metabolic Panel (14), ... - Hematology mean corpuscular volume, RBC 86 fL 79-97 Lab Report: CBC With Differential/Platel et, Comp. Metabolic Panel (14), ... - Chemistry triglyceride, serum, fasting 82 mg/dL 0-149 Lab Report: CBC With Differential/Platel et, Comp. Metabolic Panel (14), ... - Hematology erythrocyte (RBC) count 4.35 X10E6/UL 10*6/mm3 3.77-5.28 Lab Report: CBC With Differential/Platel et, Comp. Metabolic Panel (14), ... - Chemistry Estimated Glomerular Filtration Rate (calc) 96 mL/ min/1.73m2 >59 Office Visit: Annual / [employer] without PAP/ DEPO-Brith Control/ Vaccine Rm# 14 vac - Urinalysis appearance, urine clear Lab Report: CBC With Differential/Platel et, Comp. Metabolic Panel (14), ... - Hematology platelet count 167 X10E3/UL 10*3/mm3 459-830 7202/10/11 red blood cell distribution width 13.9 % 12 .3-15.4 Lab Report: CBC With Differential/Platel et, Comp. Metabolic Panel (14), ... - Chemistry protein, total, serum 7.0 g/dL 6.0-8.5 HDL cholesterol, serum 49 mg/dL >39 Office Visit: Annual / [employer] without PAP/ DEPO-Brith Control/ Vaccine Rm# 14 vac - Urinalysis glucose, urine, semiquantitative negative Lab Report: CBC With Differential/Platel et, Comp. Metabolic Panel (14), ... - Hematology eosinophils as percent of blood leukocytes 1 % Not Estab. Lab Report: CBC With Differential/Platel et, Comp. Metabolic Panel (14), ... - Chemistry albumin/globulin ratio, serum 1.5 1.2-2. 2 Absolute Neutrophils 4.9 X10E3/UL 10*3/uL 1.4-7.0 Lab Report: CBC With Differential/Platel et, Comp. Metabolic Panel (14), ... - Hematology basophil count, absolute 0.0 x10E3/uL 0.0-0.2 Lab Report: CBC With Differential/Platel et, Comp. Metabolic Panel (14), ... - Chemistry hepatitis B surface antigen Negative Negative alanine aminotransferase (SGPT), serum 30 U/L 0-32 LDL cholesterol, serum 104 mg/dL 0-99 Office Visit: Annual / [employer] without PAP/ DEPO-Brith Control/ Vaccine Rm# 14 vac - Urinalysis nitrite, urine, semiquantitative negative Lab Report: CBC With Differential/Platel et, Comp. Metabolic Panel (14), ... - Hematology monocytes as percent of blood leukocytes 5 % Not Estab. Lab Report: CBC With Differential/Platel et, Comp. Metabolic Panel (14), ... - Chemistry cholesterol, serum 169 mg/dL 100-199 Lab Report: CBC With Differential/Platel et, Comp. Metabolic Panel (14), ... - Hematology mean corpuscular hemoglobin concentration, RBC 31.9 G/DL % 31.5-35.7 Office Visit: Annual / [employer] without PAP/ DEPO-Brith Control/ Vaccine Rm# 14 vac - Urinalysis leukocyte esterase, urine, by dipstick negative Lab Report: CBC With Differential/Platel et, Comp. Metabolic Panel (14), ... - Hematology hemoglobin, blood 11.9 g/dL 11.1-15.9 leukocyte count, blood 8.0 X10E3/UL 10*3/mm3 3.4-10.8 Office Visit: Annual / [employer] without PAP/ DEPO-Brith Control/ Vaccine Rm# 14 vac - Urinalysis protein, urine, semiquantitative (dipstick) negative Lab Report: CBC With Differential/Platel et, Comp. Metabolic Panel (14), ... - Hematology hematocrit, blood 37.3 % 34.0-46.6 Lab Report: CBC With Differential/Platel et, Comp. Metabolic Panel (14), ... - Chemistry globulin, serum 2.8 1.5-4.5 vitamin D 25-hydroxy, serum 47.3 ng/mL 30.0-100 .0 thyroid stimulating hormone, serum 1.810 u[iU]/mL 0 .450-4.500 albumin, serum 4.2 g/dL 3.5-5.5 very low density lipoproteins 16 mg/dL 5-40 Lab Report: CBC With Differential/Platel et, Comp. Metabolic Panel (14), ... - Serology rubella antibody, serum, IgG 2.94 Immune >0.99 Office Visit: Annual / [employer] without PAP/ DEPO-Brith Control/ Vaccine Rm# 14 vac - Urinalysis urobilinogen, urine, semiquantitative (dipstick) negative Lab Report: CBC With Differential/Platel et, Comp. Metabolic Panel (14), ... - Hematology basophils as percent of blood leukocytes 0 % Not Estab. Lab Report: CBC With Differential/Platel et, Comp. Metabolic Panel (14), ... - Chemistry calcium, serum 8.9 mg/dL 8.7-10.2 Lab Report: CBC With Differential/Platel et, Comp. Metabolic Panel (14), ... 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 ELEMENTARY READING SPECIALIST Lab Report: CBC With Differential/Platel et, Comp. Metabolic Panel (14), ... - Chemistry urea nitrogen/creatinine ratio, serum 17 9-23 immature granulocytes, percentage of total cells, bloo d 0 % Not Estab. Lab Report: CBC With Differential/Platel et, Comp. Metabolic Panel (14), ... - Genetics/fertility eGFR if 111 mL/min/1.73m2 >59 Lab Report: CBC With Differential/Platel et, Comp. Metabolic Panel (14), ... - Hematology lymphocytes as percent of blood leukocytes 33 % Not Estab. Lab Report: CBC With Differential/Platel et, Comp. Metabolic Panel (14), ... - Chemistry carbon dioxide, venous blood 26 mmol/L 18-29 Lab Report: CBC With Differential/Platel et, Comp. Metabolic Panel (14), ... - Serology rapid plasma reagin antibody, serum Non Reactive Non Reactive Lab Report: [facility]initis [facility] (VG+) - Lab chlamydia DNA probe Negative Negative Lab Report: CBC With Differential/Platel et, Comp. Metabolic Panel (14), ... - Chemistry sodium, serum 139 mmol/L 134-144 Lab Report: [facility] Vaginitis Plus (VG+) - Microbiology Neisseria gonorrhoeae DNA probe Negative Nega tive Office Visit: Annual / [employer] without PAP/ DEPO-Brith Control/ Vaccine Rm# 14 vac - Chemistry beta HCG, urine, semiquantitative negative Lab Report: CBC With Differential/Platel et, Comp. Metabolic Panel (14), ... - Chemistry alkaline phosphatase, serum 62 U/L 39-117 Office Visit: Annual / [employer] without PAP/ DEPO-Brith Control/ Vaccine Rm# 14 vac - Urinalysis ketones, urine, by test strip negative Lab Report: CBC With Differential/Platel et, Comp. Metabolic Panel (14), ... - Hematology Eosinophil Absolute Count 0.1 X10E3/UL 10*3/uL 0.0-0.4 Office Visit: Annual / [employer] without PAP/ DEPO-Brith Control/ Vaccine Rm# 14 vac - Urinalysis specific gravity, urine 1.025 Lab Report: CBC With Differential/Platel et, Comp. Metabolic Panel (14), ... - Hematology mean corpuscular hemoglobin, RBC 27.4 pg 26. 6-33.0 Lab Report: [facility] Vaginitis Plus (VG+) - Urinalysis trichomonas vaginalis, urine Negative Negativ e Lab Report: CBC With Differential/Platel et, Comp. Metabolic Panel (14), ... - Chemistry bilirubin, serum, total 0.4 mg/dL 0.0-1.2 Lab Report: CBC With Differential/Platel et, Comp. Metabolic Panel (14), ... - Hematology neutrophils as percent of blood leukocytes 61 % Not Estab. Office Visit: Annual / [employer] without PAP/ DEPO-Brith Control/ Vaccine Rm# 14 vac - Urinalysis blood in urine (hemoglobin) by dipstick negative Lab Report: CBC With Differential/Platel et, Comp. Metabolic Panel (14), ... - Chemistry potassium, serum 4.1 mmol/L 3.5-5.2 blood glucose, random 84 mg/dL 65-99 aspartate aminotransferase (SGOT), serum 28 U/L 0-40 Office Visit: Annual / [employer] without PAP/ DEPO-Brith Control/ Vaccine Rm# 14 vac - Urinalysis urine color yellow Encounters Date Encounter Provider Code Facility New Patient Detailed Marshall Coe GRADUATE ASSISTANT CPT-50644 [facility] [place] 11:51:34 CDT - [address] [facility] Procedures Code Procedure Name Date Entry Date Standard Desc ription CPT-28592 Handling of specimen for transfer 13:11:22 CDT CPT-21384 Venipuncture 13:11:20 CDT CPT-74780 TDAP 11:51:58 CDT CPT-02752 Admin of Vaccine - Injection - Each Add'l 11:51:58 CDT CPT-05001 Hepatitis B - Adult 11:51:58 CDT CPT-12569 Admin of Vaccine - Injection - 1 11:51:58 CDT CPT-86075 Urinalysis - Dip only - In House 11:51:36 CDT CPT-71783 Urinalysis - - In House 11:51:35 CDT CPT-54005 Handling of specimen for transfer 11:51:35 CDT CPT-36157 Venipuncture 11:51:35 CDT CPT-59149 New Patient Well Exam ( - 38 Yrs) - [address] 11:51:30 CDT CPT-HE001 Health Education/Supportive 14:13:18 CDT Counseling
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
--- OUTSIDE RECORDS SUMMARY | 2019-09-13 13:24 | XMS REPORT | Summary of Care ---
:1985 Author Organization [facility] Address [address] [place] [address] Care Team Providers Name Role Phone Sridevi Way Primary Care Provider Carmen Brandon Insurance Hmo Reason for Visit Reason Comments DNKA Encounter Details Date Type Department Care Team Description 12/27/2018 Telephone [facility] DNKA [address] [place] [phone] Allergies No Known Allergiesdocumented as of this encounter (statuses as of 12/27/2018) Medications Medication Sig Dispensed Refills Start Date End Date Status buPROPion SR Take 1 tablet by 60 tablet 3 09/05/2018 Active (WELLBUTRIN SR) 150 mg mouth 2 (two) SR tabletIndications: times daily. Bipolar disease in in second trimester [id number] Take 1 Packet by 60 Each 5 10/17/2018 A ctive carb,pew-UX-ytp-dha mouth daily. (CITRANATAL 90 DHA, ALGAL OIL,) [...] Plan / Subscriber ID Effective Phone Address [facility] xxxxxxxxx 2018-Prese P[address]O. BOX Medic aid HEALTH CHOICE - HEALTH CHOICE nt [id number] 1 MANAGED MEDICAID [place] [phone] documented as of this encounter Advance Directives Name Relationship Healthcare Agent Communication Relationship Katalina Bolanos Mother Primary healthcare agent
--- OUTSIDE RECORDS SUMMARY | 2019-09-13 13:24 | XMS REPORT | Summary of Care ---
:1985 Author Organization [facility] Address [address] [place] [address] Care Team Providers Name Role Phone Sridevi Way Primary Care Provider Carmen Brandon Insurance Hmo Reason for Visit Reason Comments DNKA Encounter Details Date Type Department Care Team Description 12/27/2018 Telephone [facility], [facility] DNKA [address] [place] [phone] Allergies No Known Allergiesdocumented as of this encounter (statuses as of 12/30/2018) Medications Medication Sig Dispensed Refills Start Date End Date Status buPROPion SR Take 1 tablet by 60 tablet 3 09/05/2018 Active (WELLBUTRIN SR) 150 mg mouth 2 (two) SR tabletIndications: times daily. Bipolar disease in in second trimester [id number] Take 1 Packet by 60 Each 5 10/17/2018 A ctive carb,hqq-FE-lsc-dha mouth daily. (CITRANATAL 90 DHA, ALGAL OIL,) 90 mg iron-1 mg -50 mg-300 mg combo packIndications: High risk , antepartum documented as of this encounter (statuses as of 12/30/2018) Active Problems Problem Noted Date Depression 12/19/2018 [...] as of this encounter (statuses as of 12/30/2018) Resolved Problems Problem Noted Date Resolved Date [...] as of this encounter (statuses as of 12/30/2018) Immunizations Name Administration Dates Next Due Pneumococcal [...] Plan / Subscriber ID Effective Phone Address [facility] xxxxxxxxx 2018-Prese P.O. BOX Medic aid HEALTH CHOICE - HEALTH CHOICE nt [id number] 1 MANAGED MEDICAID [place] [phone] documented as of this encounter Advance Directives Name Relationship Healthcare Agent Communication Relationship Katalina Bolanos Mother Primary healthcare agent
--- OUTSIDE RECORDS SUMMARY | 2019-09-13 13:25 | XMS REPORT | Summary of Care ---
:1985 Author Organization [facility] Address [address] [place] [address] Care Team Providers Name Role Phone Sridevi Way Primary Care Provider Carmen Brandon Insurance Hmo Reason for Visit Reason Comments DNKA Encounter Details Date Type Department Care Team Description 12/27/2018 Telephone [facility], [facility] DNKA [address] [place] [address] Allergies No Known Allergiesdocumented as of this encounter (statuses as of 01/07/2019) Medications Medication Sig Dispensed Refills Start Date End Date Status buPROPion SR Take 1 tablet by 60 tablet 3 09/05/2018 Active (WELLBUTRIN SR) 150 mg mouth 2 (two) SR tabletIndications: times daily. Bipolar disease in in second trimester [id number]-jrge Take 1 Packet by 60 Each 5 10/17/2018 A ctive carb,ryn-FL-aut-dha mouth daily. (CITRANATAL 90 DHA, ALGAL OIL,) 90 mg iron-1 mg -50 mg-300 mg combo packIndications: High risk , antepartum documented as of this encounter (statuses as of 01/07/2019) Active Problems Problem Noted Date Depression 12/19/2018 [...] as of this encounter (statuses as of 01/07/2019) Resolved Problems Problem Noted Date Resolved Date [...] as of this encounter (statuses as of 01/07/2019) Immunizations Name Administration Dates Next Due Pneumococcal [...] filedocumented in this encounter Plan of Treatment Date Type Specialty Care Team Description 01/16/2019 Routine Visit OB Satellites Risk, Ang-Rmchp-N p/High Health Maintenance Due Date Last Done Comments DTaP,Tdap,and Td Vaccines (1 - 01/15/2018 01/14/2018 Tdap) INFLUENZA VACCINE (#1) 2019 PAP SMEAR 08/13/2021 08/13/2018, 05/31/2010, 07/31/2006, Additional history exists PNEUMOCOCCAL 0-64 YEARS COMBINED Completed 07/04/2016 SERIES documented as of this encounter Results Not on filedocumented in this encounter Insurance Payer Benefit Plan / Subscriber ID Effective Phone Address [employer] [facility] xxxxxxxxx 2018-Tomas [place] Medic aid HEALTH CHOICE - HEALTH CHOICE nt [phone] 1 MANAGED MEDICAID [place], [place] [phone] documented as of this encounter Advance Directives Name Relationship Healthcare Agent Communication Relationship Katalina Bolanos Mother Primary healthcare agent
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
--- OUTSIDE RECORDS SUMMARY | 2019-09-13 13:25 | XMS REPORT | Summary of Care ---
:1985 Author Organization [facility] Address [address] [place] [address] Care Team Providers Name Role Phone Sridevi Way Primary Care Provider Carmen Brandon Insurance Hmo Reason for Visit Reason Comments Care Encounter Details Date Type Department Care Team Description 01/16/2019 [facility] Cind y Mily [address] [place], [place] [phone] Chronic hepatitis C affecting antepartum care of mother, third trimester (Primary Dx); Visit Shane Harrison-Rmchp-Np/High High-risk , third trimester; [address] Bipolar affective disorder i n remission; [place], [place] Polysubstance a buse; [phone] AMA (advanced maternal age) multigravida 35+, third trimester [phone] Allergies No Known Allergiesdocumented as of this encounter (statuses as of 01/16/2019) Medications Medication Sig Dispensed Refills Start Date End Date Status buPROPion SR Take 1 tablet by 60 tablet 3 09/05/2018 Active (WELLBUTRIN SR) 150 mg mouth 2 (two) SR tabletIndications: times daily. Bipolar disease in in second trimester [id number] Take 1 Packet by 60 Each 5 10/17/2018 A ctive carb,jzr-ZW-npr-dha mouth daily. (CITRANATAL 90 DHA, ALGAL OIL,) [...] file Gets together: Not on file Attends adventism service: Not on file Active member of [...] medication list which includes the following prescription(s): [id number] carb,uei-mf-vln-dha and bupropion sr. Review of Systems See [...] and plans [facility] into [facility]. 3. Hep C LFTs wnl 07/2018 Repeated [...] and poc discussed RTC 02/03/19 Meggan Lamas, [facility] #[id number] This visit did not involve counseling and [...] documented in this encounter Plan of Treatment Name Type Priority Associated Diagnoses Order S chedule HIV 1/2 AG-AB WITH REFLEX LAB Routine High-risk pregn henrry, Ordered: 01/16/2019 third trimester GALV ONLY - SYPHILIS LAB Routine High-risk , Ordered: 01/16/2019 IGG/IGM third trimester ALANINE AMINO LAB Routine Chronic hepatitis C Ordered : 01/16/2019 TRANSFERASE(SGPT affecting antepartum care of mother, third trimester SGOT (ASPARTATE AMINO LAB Routine Chronic hepatitis C Ordered: 01/16/2019 TRANSFER) affecting antepartum care of mother, third trimester Glucose 1 Hour Post LAB Routine High-risk , Ordered: 01/16/2019 Prandial third trimester CBC with Differential LAB Routine High-risk , Ordered: 01/16/2019 third trimester CBC WITH DIFFERENTIAL LAB Routine High-risk , Ordered: 01/16/2019 third trimester Health Maintenance Due Date Last Done Comments [...] / Subscriber ID Effective Phone Address [facility] xxxxxxxxx 2018-Prese P.O. BOX Medic aid HEALTH CHOICE - HEALTH CHOICE nt [phone] 1 MANAGED MEDICAID [place], [place] [phone] documented as of this encounter Advance Directives Name Relationship Healthcare Agent Communication Relationship Katalina Bolanos Mother Primary healthcare agent "
--- OUTSIDE RECORDS SUMMARY | 2019-09-13 13:25 | XMS REPORT | Summary of Care ---
:1985 Author Organization [facility] Address [address] [place] [id number] Care Team Providers Name Role Phone Sridevi Way Primary Care Provider Carmen Brandon Insurance Hmo Reason for Visit Reason Comments Care Encounter Details Date Type Department Care Team Description 01/16/2019 [facility], Cind y Mily [address] [place], [place] [id number] Chronic hepatitis C affecting antepartum care of mother, third trimester (Primary Dx); Visit Shane [facility]-Np/High High-risk , third trimester; [address] Bipolar affective disorder i n remission; [place], [place] Polysubstance a buse; [id number] AMA (advanced maternal age) multigravida 35+, third trimester; [phone] High risk pregn henrry, antepartum Allergies No Known Allergiesdocumented as of this encounter (statuses as of 01/16/2019) Medications Medication Sig Dispensed Refills Start Date End Date Status buPROPion SR Take 1 tablet by 60 tablet 3 09/05/2018 Active (WELLBUTRIN SR) 150 mg mouth 2 (two) SR tabletIndications: times daily. Bipolar disease in in second trimester [id number] Take 1 Packet by 60 Each 5 10/17/2018 A ctive carb,que-CK-gqb-dha mouth daily. (CITRANATAL 90 DHA, ALGAL OIL,) [...] file Gets together: Not on file Attends spiritism service: Not on file Active member of [...] medication list which includes the following prescription(s): [id number] carb,yyz-wo-who-dha and bupropion sr. Review of Systems See [...] and poc discussed RTC 02/03/19 Meggan Lamas, [id number] This visit did not involve counseling and [...] Description 02/03/2019 Routine Visit OB Satellites Faculty, Shane [facility] p m Name Type Priority Associated Diagnoses Date/Ti me [...] encounter Procedures Procedure Name Priority Date/Time Associated Comments Diagnosis POCT URINALYSIS W/O Routine 01/16/2019 4:22 High risk Resu lts for this SPECIFIC GRAVITY PM CDT , procedure a re in antepartum the results section. TDAP (ADACEL) Routine 01/16/2019 3:11 High-risk IMMUNIZATION PM CDT , third trimester documented in this encounter Results POCT URINALYSIS W/O SPECIFIC GRAVITY (01/16/2019 4:22 PM CDT) Pathologist Sig nature POCT PH U 5 5 - 8 mg/dl POCT U LEUK EST neg Negative - Negative POCT U NIT neg Negative - Negative POCT U PROT 1+ Negative - Negative POCT U GLU 3+ Negative - Negative POCT U KETONE neg Negative - Negative POCT U BLD neg Negative - Negative Specimen Urine - URINE, UNSPECIFIED SOURCE documented in this encounter Visit Diagnoses Diagnosis Chronic hepatitis C affecting antepartum care of mother, third trimester - Primary High-risk , third trimester Bipolar affective disorder in remission Polysubstance abuse Other, mixed, or unspecified nondependen t drug abuse, unspecified AMA (advanced maternal age) multigravida 35+, third trimester High risk , antepartum documented in this encounter Insurance Payer Benefit Plan / Subscriber ID Effective Phone Address T e Group Dates [facility] xxxxxxxxx 2018-Tomas P.OArmani BOX Medic aid HEALTH CHOICE [place] [id number] 1 MANAGED MEDICAID [place], [place]ID [phone] documented as of this encounter Advance Directives Name Relationship Healthcare Agent Communication Relationship Katalina Bolanos Mother Primary healthcare agent "
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
--- OUTSIDE RECORDS SUMMARY | 2019-09-13 13:26 | XMS REPORT ---
:1985 Author Organization [facility] t Address [address] [place] [address] Dr. Galvan [address] [place] [id number] Care Team Providers Name Role Phone Unavailable Unavailable Unavailable Problems This patient has no known problems. Allergies, Adverse Reactions, Alerts This patient has no known allergies or adverse reactions. Medications This patient has no known medications.
--- NOTE | 2019-09-13 13:46 | ER ---
Nurse's Notes [facility] Name: Araceli Hunter Age: 34 yrs Sex: Female : 1985 Arrival Date: 09/13/2019 Time: 13:25 Bed 14 Private MD: Diagnosis: Pain in wrist Presentation: 09/12 13:37 Chief complaint: Right wrist pain x 6 moths. Coronavirus screen: Proceed with normal hb triage. Ebola Screen: No symptoms or risks identified at this time. Initial Sepsis Screen: Does the patient meet any 2 criteria? No. Patient's initial sepsis screen is negative. Does the patient have a suspected source of infection? No. Patient's initial sepsis screen is negative. Risk Assessment: Do you want to hurt yourself or someone else? Patient reports no desire to harm self or others. Onset of symptoms is unknown. 13:37 Method Of Arrival: Ambulatory hb 13:37 Acuity: ANA MARIA 4 hb Triage Assessment: 13:39 General: Appears in no apparent distress. Behavior is calm, cooperative. Pain: Pain hb currently is 9 out of 10 on a pain scale. EENT: No signs and/or symptoms were reported regarding the EENT system. Neuro: Level of Consciousness is awake, alert, obeys commands, Oriented to person, place, time, situation. Cardiovascular: Capillary refill < 3 seconds Patient's skin is warm and dry. Respiratory: Airway is patent Respiratory effort is even, unlabored, Respiratory pattern is regular, symmetrical. GI: No signs and/or symptoms were reported involving the gastrointestinal system. : No signs and/or symptoms were reported regarding the genitourinary system. Derm: Skin is pink, warm \T\ dry. Musculoskeletal: Reports right wrist pain. 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 - Social history:: Smoking status: Patient denies any tobacco usage or history of. Screenin:40 Abuse screen: Denies threats or abuse. Denies injuries from another. Nutritional hb screening: No deficits noted. Tuberculosis screening: No symptoms or risk factors identified. Fall Risk None identified. Assessment: 13:40 General: see triage assessment. hb 13:50 Musculoskeletal: Circulation, motion, and sensation intact. Capillary refill < 3 ll1 seconds, Range of motion: intact in all extremities, Tenderness present in right wrist Reports pain in right wrist. Injury Description: no specific injury. Vital Signs: 13:37 BP 124 / 67; Pulse 66; Resp 16; Temp 98.2; Pulse Ox 100% on R/A; Weight 62.6 kg; Height hb 5 ft. 5 in. (165.10 cm); Pain 9/10; 13:37 Body Mass Index 22.96 (62.60 kg, 165.10 cm) hb ED Course: 13:25 Patient arrived in ED. mr 13:26 [place] ChildersNABIL is [facility]. la1 13:26 Ricardo Mai MD is Attending Physician. la1 13:38 Triage completed. hb 13:39 Arm band placed on. hb 13:40 Patient has correct armband on for positive identification. Bed in low position. Call hb light in reach. Side rails up X 1. 13:53 Jeremiah Balderrama, RN is Primary Nurse. ll1 13:53 No provider procedures requiring assistance completed. Patient did not have IV access ll1 during this emergency room visit. Administered Medications: No medications were administered Outcome: 13:45 Discharge ordered by . la1 13:53 Patient left the ED. ll1 13:53 Discharged to home ambulatory. ll1 13:53 Condition: stable 13:53 Discharge instructions given to patient, Instructed on discharge instructions, follow up and referral plans. Demonstrated understanding of instructions, follow-up care. Signatures: Geno Jordan Rmvolodymyr NELLIE OnofreC RECREATIONAL AIDE-Cla1 Makeda Sherman RN RN Jeremiah Balderrama RN RN ll1
--- NOTE | 2019-09-13 13:46 | EDPHYS ---
Physician Documentation [facility] Name: Araceli Hunter Age: 34 yrs Sex: Female : 1985 Arrival Date: 09/13/2019 Time: 13:25 Bed 14 Private MD: WILLIAMS Physician Ricardo Mai HPI: 09/12 13:48 This 34 yrs old Female presents to ER via Ambulatory with complaints of Wrist la1 Pain. 13:48 The patient or guardian reports pain. The complaints affect the right wrist diffusely. la1 Context: resulted from an unknown cause. Onset: The symptoms/episode began/occurred 6 month(s) ago. Modifying factors: The symptoms are alleviated by nothing, the symptoms are aggravated by nothing. Associated signs and symptoms: Pertinent negatives: nausea, numbness distally, tingling distally. The patient has not experienced similar symptoms in the past. 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 - Social history:: Smoking status: Patient denies any tobacco usage or history of. ROS: 13:48 Constitutional: Negative for fever, chills, and weight loss, Eyes: Negative for injury, la1 pain, redness, and discharge, ENT: Negative for injury, pain, and discharge, Cardiovascular: Negative for chest pain, palpitations, and edema, Respiratory: Negative for shortness of breath, cough, wheezing, and pleuritic chest pain, Abdomen/GI: Negative for abdominal pain, nausea, vomiting, diarrhea, and constipation. 13:48 Back: Negative for injury and pain, Skin: Negative for injury, rash, and discoloration. 13:48 MS/extremity: Positive for pain, of the right wrist. Exam: 13:49 Hand exam: is negative for atrophy, Exam is positive for Finklestein's ROM: full active la1 range of motion, Pulses: noted to be 3+ in the right radial artery and left radial artery, sensation intact. 13:49 Constitutional: This is a well developed, well nourished patient who is awake, alert, and in no acute distress. Head/Face: Normocephalic, atraumatic. Cardiovascular: Regular rate and rhythm with a normal S1 and S2. Respiratory: Lungs have equal breath sounds bilaterally, clear to auscultation Skin: Warm, dry with normal turgor. Normal color with no rashes, no lesions, and no evidence of cellulitis. MS/ Extremity: Pulses equal, no cyanosis. Neurovascular intact. Full, normal range of motion. Vital Signs: 13:37 BP 124 / 67; Pulse 66; Resp 16; Temp 98.2; Pulse Ox 100% on R/A; Weight 62.6 kg; Height hb 5 ft. 5 in. (165.10 cm); Pain 9/10; 13:37 Body Mass Index 22.96 (62.60 kg, 165.10 cm) hb MDM: 13:37 Patient medically screened. [facility] 13:44 Data reviewed: vital signs, nurses notes, and as a result, I will discharge patient. la1 Data interpreted: Pulse oximetry: on room air is 100 %. Interpretation: normal. Counseling: I had a detailed discussion with the patient and/or guardian regarding: the historical points, exam findings, and any diagnostic results supporting the discharge/admit diagnosis, the need for outpatient follow up, a hand specialist, to return to the emergency department if symptoms worsen or persist or if there are any questions or concerns that arise at home. Administered Medications: No medications were administered Disposition: 09/13/19 13:45 Discharged to Home. Impression: Pain in wrist. - Condition is Stable. - Discharge Instructions: Wrist Pain. - Medication Reconciliation Form, Thank You Letter form. - Follow up: Private Physician; When: As needed. - Problem is new. - Symptoms are unchanged. - Notes: I believe you pain is likely caused by De Quervain's tenosynovitis. You will need to see a hand surgeon for further management. Take Ibuprofen 600mg every 6-8 hours as needed for pain. Addendum: 09/15/2019 09:56 Co-signature as Attending Physician, Ricardo Mai MD I agree with the assessment and c whittaekr plan of care. Signatures: Ricardo Mai MD MD cha Attema, Lee, SITE SURVEYOR-C SITE SURVEYOR-Cla1 Makeda Sherman, RN RN Jeremiah Balderrama RN RN ll1 Corrections: (The following items were deleted from the chart) 09/12 13:53 13:45 09/13/2019 13:45 Discharged to Home. Impression: Pain in wrist. Condition is ll1 Stable. Forms are Medication Reconciliation Form, Thank You Letter, Antibiotic Education, Prescription Opioid Use. Follow up: Private Physician; When: As needed. Problem is new. Symptoms are unchanged. la1
[2019-09-13 14:01] VITALS: BP 124/67; TEMP 98.2; O2SAT 100
== END 2019-09-13 13:53 | disposition home or self-care (01) ==
LOC: ER 13:22
DX: M25.531 Pain in right wrist (principal); F31.9 Bipolar disorder, unspecified; F20.9 Schizophrenia, unspecified
CPT/HCPCS: 99281

== ENCOUNTER 2021-11-15 15:42 | Emergency (ER) | payer SELFPAY ==
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
[2021-11-15 18:43] VITALS: TEMP 97.5; O2SAT 100
[2021-11-15 18:45] VITALS: BP 96/61
== END 2021-11-15 18:11 | disposition home or self-care (01) ==
LOC: ER 15:42
DX: T40.1X1A Poisoning by heroin, accidental (unintentional), initial encounter (principal)

== ENCOUNTER 2022-12-19 18:00 | Emergency (ER) | payer OTHER, SELFPAY ==
--- OUTSIDE RECORDS SUMMARY | 2022-12-19 18:04 | XMS REPORT | Continuity of Care Document ---
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 Univers 14:15:00 15:50:21 TARA saxena f [facility] 2021-05-04 2021-05-04 Office [facility] 1.2.215.134 [id number] Univers 14:15:00 15:50:21 Visit Tara Morales 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 350.1.13.10 ity [facility] 4.2.7.2.686 [place] as MATERNAL [id number] Med ical & CHILD [address] [place] [address] 2021-01-18 2021-01-18 Outpatient Margarita MARTINEZ [facility] [id number] Univers 10:30:00 10:30:00 FILI mujica [facility] 2021-01-18 2021-01-18 Outpatient Margarita MARTINEZ [facility] [id number] Univers 10:30:00 10:30:00 FILI mujica [facility] 2019-02-03 2019-02-03 Routine Faculty, [facility] 1.2 .840.114 [id number] Univers 14:21:19 15:20:08 Song Cannon 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 2.840.114 [id number] Univers 15:08:51 16:22:34 Meggan Lamas 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 350.1.13.10 ity of Visit REGIONAL 4.2.7.2.686 [place] MATERNAL [id number] [address] 2018-12-27 2018-12-27 Telephone Faculty, [facility] 1.2.840.114 [id number] Univers 00:00:00 00:00:00 [facility] 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 350.1.13.10 ity of [facility] 4.2.7.2.686 [place] as MATERNAL [id number] [facility] & [address] Results Test Description Test Time Test Comments Results Result Comments Source POCT URINALYSIS W SPECIFIC GRAVITY 2022-06-23 16:35:00 Test Item Value Reference Range Interpretation Comme nts POCT U SP GRAV (test code = 3255) . 1.005-1.025 POCT PH U (test code = 3254) . 5-8 POCT U LEUK EST (test code = 3263) . Negative - Negative POCT U NIT (test code = 3262) . Negative - Negative POCT U PROT (test code = 3259) trace Negative - Negative POCT U GLU (test code = 3256) negative Negative - Negative POCT U KETONE (test code = 3258) . Negative - Negative POCT U UROBILI (test code = 3260) . 0.2-1 POCT U BILI (test code = 3261) . Negative - Negative POCT U BLD (test code = 3257) . Negative - Negative POCT U COLOR (test code = 3266) . POCT U APPEAR (test code = 3267) . [facility], BLOOD [id number] 08:29:24 Test Item Value Reference Range Interpretation Comments ABO & RH (test code O POSITIVE Performe d at [facility] = 20) Laboratory Serv [facility] s [id number] Free: [phone] A No. [id number] IAT (test code = Negative Performed a t [facility] 1185) Laboratory Serv [facility] s [id number] Free: [phone] A No. [id number] [facility] [id number] 16:09:00 Test Item Value Reference Range Interpretation Comments POCT PREG (test code = 1605) Positive On board controls acceptable with C Yes Line (test code = 3574) POCT PREG LOT # (test code = 3575) POCT PREG TEST DATE (test code = 357) [facility] URINALYSIS W/O SPECIFIC [id number] 16:09:00 Test Item Value Reference Range Interpretation Comments POCT PH U (test code = 7 mg/dl 5-8 3254) POCT U LEUK EST (test code trace Negative - Negative = 3263) POCT U NIT (test code = positive Negative - Negative 3262) POCT U PROT (test code = 1+ Negative - Negative 3259) POCT U GLU (test code = negative Negative - Negative 3256) POCT U KETONE (test code = negative Negative - Negative 3258) POCT U BLD (test code = 1+ (about 250) Negative - Negative 3257) [facility] [id number] 22:26:00 Test Item Value Reference Range Interpretation Comments POCT PREG (test code = 1605) Negative On board controls acceptable with C Yes Line (test code = 3574) POCT PREG LOT # (test code = 3575) POCT PREG TEST DATE (test code = 3576) [facility] [id number] 22:26:00 Test Item Value Reference Range Interpretation Comments POCT PREG (test code = 1605) Negative On board controls acceptable with C Yes Line (test code = 3574) POCT PREG LOT # (test code = 3575) POCT PREG TEST DATE (test code = 3576) [facility]
[2022-12-19 19:18] LABS: Lymphocytes % 17.6 % (15.3-44.8); MCV 77.5 fL (80-100); MPV 9.6 fL (7.6-11.3); RBC Red Blood Cell Count 3.49 M/uL (3.86-4.86)
[2022-12-19 20:03] LABS: Potassium 3.6 mEq/L (3.5-5.1)
[2022-12-19] MEDS ORDERED: NA CHLORIDE 0.9% 1,000 ML ONE (20:35)
--- NOTE | 2022-12-19 20:50 | RAD REPORT ---
EXAM DESCRIPTION: US - OB Limited - 12/19/2022 8:32 pm CLINICAL HISTORY: with abdominal pain status post fall COMPARISON: None FINDINGS: Single live intrauterine in cephalic presentation. The placenta is anterior. No subchorionic/retroplacental bleed. Normal amniotic fluid Cardiac activity 143 per minute The cervix was not well imaged. Femur length 6.6 centimeters 34 weeks 0 days The right and left adnexal unremarkable. IMPRESSION: Single live intrauterine in cephalic presentation Estimated gestational age 34 weeks 0 days ZENIA 01/30/2023 No subchorionic/retroplacental bleed A nuchal cord is present
--- NOTE | 2022-12-19 21:22 | EDPHYS ---
Physician Documentation [facility] Name: Araceli Hunter Age: 37 yrs Sex: Female : 1985 Arrival Date: 12/19/2022 Time: 18:00 Bed 19 Private MD: ED Physician Ricardo Mai HPI: 12/19 21:14 This 37 yrs old Female presents to ER via EMS with complaints of Fall Injury, 9 months cali . 21:14 Details of fall: The patient fell from an upright position, while walking. Onset: The cali symptoms/episode began/occurred just prior to arrival. Associated injuries: The patient sustained left hip. Severity of symptoms: At their worst the symptoms were mild, in the emergency department the symptoms are unchanged. The patient has not experienced similar symptoms in the past. 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 - Social history:: Smoking status: Patient reports the use of cigarette tobacco products, smokes one-half pack cigarettes per day, Patient uses street drugs, Methamphetamine (Meth). ROS: 21:15 Constitutional: Negative for fever, chills, and weight loss, Eyes: Negative for injury, cali pain, redness, and discharge, ENT: Negative for injury, pain, and discharge, Neck: Negative for injury, pain, and swelling, Cardiovascular: Negative for chest pain, palpitations, and edema, Respiratory: Negative for shortness of breath, cough, wheezing, and pleuritic chest pain, Back: Negative for injury and pain, : Negative for injury, bleeding, discharge, and swelling, Skin: Negative for injury, rash, and discoloration, Neuro: Negative for headache, weakness, numbness, tingling, and seizure, Psych: Negative for depression, anxiety, suicide ideation, homicidal ideation, and hallucinations, Allergy/Immunology: Negative for hives, rash, and allergies, Endocrine: Negative for neck swelling, polydipsia, polyuria, polyphagia, and marked weight changes, Hematologic/Lymphatic: Negative for swollen nodes, abnormal bleeding, and unusual bruising. 21:15 Back: Positive for pain with movement, of the sacrum. 21:15 MS/extremity: Positive for pain, tenderness, of the left hip. Exam: 21:15 Constitutional: This is a well developed, well nourished patient who is awake, alert, cali and in no acute distress. Head/Face: Normocephalic, atraumatic. Eyes: Pupils equal round and reactive to light, extra-ocular motions intact. Lids and lashes normal. Conjunctiva and sclera are non-icteric and not injected. Cornea within normal limits. Periorbital areas with no swelling, redness, or edema. ENT: Nares patent. No nasal discharge, no septal abnormalities noted. Tympanic membranes are normal and external auditory canals are clear. Oropharynx with no redness, swelling, or masses, exudates, or evidence of obstruction, uvula midline. Mucous membranes moist. Neck: Trachea midline, no thyromegaly or masses palpated, and no cervical lymphadenopathy. Supple, full range of motion without nuchal rigidity, or vertebral point tenderness. No Meningismus. Chest/axilla: Normal chest wall appearance and motion. Nontender with no deformity. No lesions are appreciated. Cardiovascular: Regular rate and rhythm with a normal S1 and S2. No gallops, murmurs, or rubs. Normal PMI, no JVD. No pulse deficits. Respiratory: Lungs have equal breath sounds bilaterally, clear to auscultation and percussion. No rales, rhonchi or wheezes noted. No increased work of breathing, no retractions or nasal flaring. Abdomen/GI: Soft, non-tender, with normal bowel sounds. No distension or tympany. No guarding or rebound. No evidence of tenderness throughout. Back: No spinal tenderness. No costovertebral tenderness. Full range of motion. Skin: Warm, dry with normal turgor. Normal color with no rashes, no lesions, and no evidence of cellulitis. MS/ Extremity: Pulses equal, no cyanosis. Neurovascular intact. Full, normal range of motion. Neuro: Awake and alert, GCS 15, oriented to person, place, time, and situation. Cranial nerves II-XII grossly intact. Motor strength 5/5 in all extremities. Sensory grossly intact. Cerebellar exam normal. Normal gait. 21:15 Abdomen/GI: Inspection: gravid appearance, Bowel sounds: normal, Palpation: abdomen is soft and non-tender, in all quadrants, Liver: no appreciated palpable abnormalities, Hernia: not appreciated. Vital Signs: 19:01 BP 134 / 92; Pulse 99; Resp 18; Temp 97.8; Pulse Ox 99% ; Weight 66.68 kg; Height 5 ft. cm10 0 in. ; Pain 6/10; 21:02 BP 124 / 85; Pulse 81; Resp 16; Pulse Ox 100% on R/A; jb4 19:01 Body Mass Index 28.71 (66.68 kg, 152.4 cm) cm10 19:01 Pain Scale: Adult cm10 MDM: 18:[address] [facility] 21:18 Differential diagnosis: contusion, abrasion. Differential diagnosis: contusion, cali fracture, multiple trauma, sprain, strain. Data reviewed: vital signs, nurses notes, lab test result(s), radiologic studies, ultrasound. Consideration of Admission/Observation Escalation of care including admission/observation considered. I considered the following discharge prescriptions or medication management in the emergency department Medications were administered in the Emergency Department. See MAR. Test considered but Not performed: Ultrasound no gb usg , no x rays. Care significantly affected by the following chronic conditions: anxiety, bipolar,ptsd, ptsd. Counseling: I had a detailed discussion with the patient and/or guardian regarding: the historical points, exam findings, and any diagnostic results supporting the discharge/admit diagnosis, lab results, radiology results, the need for outpatient follow up, for definitive care, an OB/Gyne specialist. 12/19 18:12 Order name: Abo/rh Typing; Complete Time: 21: [facility] 12/19 18:12 Order name: Basic Metabolic Panel; Complete Time: 21: [facility] 12/19 18:12 Order name: CBC with Diff; Complete Time: : [facility] 12/19 21:08 Order name: UDS [facility] 12/19 18:12 Order name: US OB Limited; Complete Time: 21: [facility] 12/19 18:12 Order name: IV Saline Lock; Complete Time: : [facility] 12/19 18:12 Order name: Labs collected and sent; Complete Time: : [facility] 12/19 18:12 Order name: NPO; Complete Time: 20:23 cali Administered Medications: 20:29 Drug: NS 0.9% IV 1000 ml Route: IV; Rate: 1 bolus; Site: left forearm; jb4 Disposition Summary: 12/19/22 21:21 Discharge Ordered Location: Home cali Problem: new cali Symptoms: have improved cali Condition: Stable cali Diagnosis - Dysuria cali - Abuse of other non-psychoactive substances - per patient cali - Tobacco abuse counseling cali - Tobacco use cali - Fall on same level, unspecified cali - Contusion of left hip cali - 34 weeks gestation of cali Followup: cali - With: Private Physician - When: 2 - 3 days - Reason: Recheck today's complaints, Continuance of care, Re-evaluation by your physician Discharge Instructions: - Discharge Summary Sheet cali - Finding Treatment for Addiction cali - Dysuria cali - Substance Use Disorder cali - Care cali - Labor cali - Self-Destructive Behavior cali - Steps to Quit Smoking cali - Health Risks of Smoking cali - Third Trimester of cali - Fall Prevention in the Home, Adult, [facility] Forms: - Medication Reconciliation Form cali - Thank You Letter cali - Antibiotic Education cali - Prescription Opioid Use cali - Patient Portal Instructions cali Prescriptions: - Cephalexin 500 mg Oral Capsule - take 1 capsule by ORAL route every 6 hours for 7 days; 28 capsule; Refills: 0, cali Product Selection Permitted Signatures: Dispatcher [employer] Ricardo Dsouza MD MD cha Bryson, James, RN RN jb4 Mariely Moffett RN RN cm10
--- NOTE | 2022-12-19 21:22 | ER ---
Nurse's Notes [facility] Name: Araceli Hunter Age: 37 yrs Sex: Female : 1985 Arrival Date: 12/19/2022 Time: 18:00 Bed 19 Private MD: Diagnosis: Dysuria;Abuse of other non-psychoactive substances-per patient;Tobacco abuse counseling;Tobacco use;Fall on same level, unspecified;Contusion of left hip;34 weeks gestation of Presentation: 12/19 19:01 Chief complaint: Patient states: Slipped and fell at [employer] today. Pt reports left cm10 elbow pain and lower back pain. Pt able to ambulate with steady gait. Pt is 9 months . . Coronavirus screen: Vaccine status: Patient reports being unvaccinated. Ebola Screen: No symptoms or risks identified at this time. Initial Sepsis Screen: Does the patient meet any 2 criteria? No. Patient's initial sepsis screen is negative. Does the patient have a suspected source of infection? No. Patient's initial sepsis screen is negative. Risk Assessment: Do you want to hurt yourself or someone else? Patient reports no desire to harm self or others. Onset of symptoms was December 19, 2022. 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 - Social history:: Smoking status: Patient reports the use of cigarette tobacco products, smokes one-half pack cigarettes per day, Patient uses street drugs, Methamphetamine (Meth). Screenin:02 [facility] ED Fall Risk Assessment (Adult) History of falling in the last 3 months, jb4 including since admission Yes- single mechanical fall (1 pt) Confusion or Disorientation No (0 pts) Score/Fall Risk Level 0 - 2 = Low Risk Oriented to surroundings, Maintained a safe environment. Abuse screen: Denies threats or abuse. Nutritional screening: No deficits noted. Tuberculosis screening: No symptoms or risk factors identified. Assessment: 21:01 General: Appears in no apparent distress. comfortable, Behavior is calm, cooperative, jb4 appropriate for age. Pain: Complains of pain in buttocks Pain does not radiate. Pain currently is 6 out of 10 on a pain scale. Neuro: Level of Consciousness is awake, alert, obeys commands, Oriented to person, place, time, situation. Cardiovascular: Patient's skin is warm and dry. Respiratory: Airway is patent Respiratory effort is even, unlabored, Respiratory pattern is regular, symmetrical. GI: No signs and/or symptoms were reported involving the gastrointestinal system. : No signs and/or symptoms were reported regarding the genitourinary system. EENT: No signs and/or symptoms were reported regarding the EENT system. Derm: Skin is intact, Skin is pink, warm \\T\\ dry. Musculoskeletal: Circulation, motion, and sensation intact. Range of motion: intact in all extremities. 21:20 Reassessment: Pt reports that told her the baby was fine and she was good to go. ED jb4 physicians agrees that that was said. Pt states " I am going to go ahead and leave, he told me I was good to going to leave." informed pt that not all test were back yet and that he had ordered more. Pt refused to stay and wait for further testing to be complete. States " I am going to the hospital where I am having the baby tomorrow." Pt continues to refuse to stay to wait for further testing. IV d/c'ed pt left ED to wait in lobby for ride home with steady gait. Vital Signs: 19:01 BP 134 / 92; Pulse 99; Resp 18; Temp 97.8; Pulse Ox 99% ; Weight 66.68 kg; Height 5 ft. cm10 0 in. ; Pain 6/10; 21:02 BP 124 / 85; Pulse 81; Resp 16; Pulse Ox 100% on R/A; jb4 19:01 Body Mass Index 28.71 (66.68 kg, 152.4 cm) cm10 19:01 Pain Scale: Adult cm10 ED Course: 18:01 Patient arrived in ED. rg4 18:11 Ricardo Mai MD is Attending Physician. cali 18:43 Patient's name was called from ER lobby. No response. cm10 19:03 Triage completed. cm10 19:05 Arm band placed on Patient placed in waiting room. cm10 20:29 Maldonado Stauffer, RN is Primary Nurse. jb4 20:34 US OB Limited In Process Unspecified. EDMS 21:02 Patient has correct armband on for positive identification. Bed in low position. Call jb4 light in reach. Side rails up X 1. Client placed on continuous cardiac and pulse oximetry monitoring. NIBP monitoring applied. 21:20 No provider procedures requiring assistance completed. IV discontinued, intact, jb4 bleeding controlled, No redness/swelling at site. Pressure dressing applied. Administered Medications: 20:29 Drug: NS 0.9% IV 1000 ml Route: IV; Rate: 1 bolus; Site: left forearm; jb4 Medication: 21:20 VIS not applicable for this client. jb4 Outcome: 21:21 Discharge ordered by . [facility] 21:24 Discharged to home ambulatory. jb4 21:24 Condition: stable 21:24 Discharge instructions given to Pt left prior to receiving discharge instructions. 21:24 Patient left the ED. jb4 Signatures: Dispatcher [employer] [facility] Ricardo Mai MD MD cha Garcia, Rubi rg4 Maldonado Stauffer, RN RN jb4 Mariely Moffett RN RN 10
[2022-12-19 21:52] VITALS: TEMP 97.8
[2022-12-19 21:53] VITALS: BP 124/85; O2SAT 100
[2022-12-19 21:55] LABS: Barbiturates NEGATIVE (NEGATIVE); Benzodiazepines POSITIVE (NEGATIVE); Cocaine POSITIVE (NEGATIVE); METHAMPHETAM POSITIVE (NEGATIVE); Methadone NEGATIVE (NEGATIVE); Opiates NEGATIVE (NEGATIVE); Phencyclidine NEGATIVE (NEGATIVE); THC Cannibis POSITIVE (NEGATIVE)
== END 2022-12-19 21:24 | disposition home or self-care (01) ==
LOC: ER 18:00
DX: O9A.213 Injury, poisoning and certain other consequences of external causes complicating pregnancy, third trimester (principal); S70.02XA Contusion of left hip, initial encounter; W18.30XA Fall on same level, unspecified, initial encounter; O99.333 Smoking (tobacco) complicating pregnancy, third trimester; O99.343 Other mental disorders complicating pregnancy, third trimester; F20.9 Schizophrenia, unspecified; F17.210 Nicotine dependence, cigarettes, uncomplicated; R30.0 Dysuria; F55.8 Abuse of other non-psychoactive substances; Z71.6 Tobacco abuse counseling
CPT/HCPCS: 85025; 80048; 36415; 86900; 86901; 80307; 76815; J7030

== ENCOUNTER 2023-09-03 22:02 | Emergency (ER) | payer OTHER ==
[2023-09-03] MEDS ORDERED: NA CHLORIDE 0.9% 1,000 ML ONE (22:27)
[2023-09-03 22:39] LABS: Absolute Basophils 0.1 K/uL (0-0.5); Absolute Lymphocytes (CBC) 1.5 K/uL (0.7-4.9); Absolute Monocytes 0.3 K/uL (0.1-1.3); Absolute Neutrophil 7.8 K/uL (1.8-8.0); Basophils % 0.6 % (0-1.3); Eosinophils % 0.2 % (0-4.4); Hematocrit 34.8 % (36.0-45.0); Hemoglobin 10.8 g/dL (12.0-15.0); Lymphocytes % 15.8 % (15.3-44.8); MCH 21.4 pg (27.0-35.0); MCV 69.1 fL (80-100); MPV 8.1 fL (7.6-11.3); Monocytes % 3.5 % (3.3-12.3); Neutrophils % 79.9 % (41.7-73.7); Platelets 331 thou/uL (152-406); RBC Red Blood Cell Count 5.03 M/uL (3.86-4.86)
[2023-09-03 23:06] LABS: ALT/SGPT 14 U/L (13-56); AST/SGOT 11 U/L (15-37); Albumin/Globulin Ratio 0.8 (1.1-1.8); Alkaline Phosphatase 79 U/L (45-117); Anion Gap 10.7 mEq/L (5.0-15.0); BUN Blood Urea Nitrogen 22 mg/dL (7-18); Bicarbonate 22 mEq/L (21-32); Bilirubin Direct 0.1 mg/dL (0-0.2); Bilirubin Indirect, Calculated 0.3 mg/dL (0.2-0.8); Bilirubin Total 0.4 mg/dL (0.2-1.0); Globulin 3.9 g/dL (2.3-3.5); Glomerular Filtration Rate 88 ml/min (=/>90); Glucose Level 97 mg/dL (74-106); Potassium 3.7 mEq/L (3.5-5.1); Protein, Total 6.9 g/dL (6.4-8.2); Sodium Level 140 mEq/L (136-145)
--- NOTE | 2023-09-03 23:41 | EDPHYS ---
Physician Documentation [facility] Name: Araceli Hunter Age: 38 yrs Sex: Female : 1985 Arrival Date: 09/03/2023 Time: 22:02 Bed 4 Private MD: ED Physician Jerad Lantigua HPI: 09/02 22:15 This 38 yrs old Female presents to ER via Unassigned with complaints of sp4 Possible Overdose. 23:42 38-year-old female presents with EMS and police escort secondary to possible sp4 intoxication. Patient was apprehended for evasion of arrest. . 23:43 Patient was apparently arrested for possession of substance and became unresponsive sp4 after she attempted to run away from the police. Patient is here for medical assessment. On arrival patient is rolling the eyes and the back of her head and is uncooperative. . Historical: - Allergies: 22:23 No Known Allergies; jj7 - PMHx: 22:23 Anxiety; PTSD; Schizophrenia; Bipolar disorder; jj7 - PSHx: 22:23 None; jj7 - Immunization history:: Adult Immunizations unknown. - Family history:: not pertinent. ROS: 23:43 Constitutional: Negative for fever, chills, and weight loss, Full ROS not available, sp4 patient is uncooperative 23:43 All other systems are negative, 23:43 Unable to obtain ROS due to patient being uncooperative, Exam: 23:43 Constitutional: This is a well developed, well nourished patient who is in no acute sp4 distress. Head/Face: Normocephalic, atraumatic. Eyes: Pupils equal round and reactive to light, extra-ocular motions intact. Lids and lashes normal. Conjunctiva and sclera are not injected. Cornea within normal limits. Periorbital areas with no swelling, redness, or edema. ENT: Nares patent. No nasal discharge, no septal abnormalities noted. Tympanic membranes are normal and external auditory canals are clear. Oropharynx with no redness, swelling, or masses, exudates, or evidence of obstruction, uvula midline. Mucous membranes moist. Neck: Trachea midline, no thyromegaly or masses palpated, and no cervical lymphadenopathy. Supple, full range of motion without nuchal rigidity, or vertebral point tenderness. Chest/axilla: Normal chest wall appearance and motion. Nontender with no deformity. No lesions are appreciated. Cardiovascular: Regular rate and rhythm with a normal S1 and S2. No gallops, murmurs, or rubs. Normal PMI, no JVD. No pulse deficits. Respiratory: Lungs have equal breath sounds bilaterally, clear to auscultation and percussion. No rales, rhonchi or wheezes noted. No increased work of breathing, no retractions or nasal flaring. Abdomen/GI: Soft, with normal bowel sounds. No distension or tympany. No guarding or rebound. No evidence of tenderness throughout. Back: No spinal tenderness. No costovertebral tenderness. Skin: Warm, dry with normal turgor. Normal color with no rashes, no lesions, and no evidence of cellulitis. MS/ Extremity: Pulses equal, no cyanosis. Neurovascular intact. Full, normal range of motion. Neuro: Patient is uncooperative with neurologic exam. Patient rolls her eyes out for her to avoid pupillary exam. Moving all extremities secondary to sternal rub. Vital Signs: 22:05 BP 138 / 83; Pulse 73; Resp 73; Temp 98.2; Pulse Ox 100% on R/A; Weight 67.13 kg; jj7 Height 5 ft. 0 in. ; 23:00 BP 142 / 104; Pulse 77; Resp 16; Pulse Ox 99% ; jj7 23:44 BP 144 / 99; Pulse 71; Resp 17; Pulse Ox 99% ; jj7 22:05 Body Mass Index 28.90 (67.13 kg, 152.4 cm) [facility] MDM: 22:14 Patient medically screened. sp4 23:43 Differential diagnosis: polypharmacy, over medication, hypoglycemia, closed head sp4 injury. Data reviewed: vital signs, nurses notes, EMS record, old medical records, lab test result(s). ED course: Patient became responsive after some IV fluids. Patient began speaking and has refused to stand up. At this time I do not see any evidence of emergent medical condition with the patient. Patient was cleared for discharge from ER and for admittance to alf. . 09/02 22:14 Order name: Acetaminophen; Complete Time: 23:38 sp4 09/02 22:14 Order name: Basic Metabolic Panel; Complete Time: 23:38 sp4 09/02 22:14 Order name: CBC with Diff sp4 09/02 22:14 Order name: ETOH Level; Complete Time: 23:38 sp4 09/02 22:14 Order name: Hepatic Function; Complete Time: 23:38 sp4 09/02 22:14 Order name: PT-INR sp4 09/02 22:14 Order name: Ptt, Activated sp4 09/02 22:14 Order name: Salicylate; Complete Time: 23:38 sp4 09/02 22:42 Order name: CBC Smear Scan EDUT 09/02 22:14 Order name: EKG - Nurse/Tech; Complete Time: 22:20 sp4 09/02 22:14 Order name: IV Saline Lock; Complete Time: 22:20 sp4 09/02 22:14 Order name: Labs collected and sent; Complete Time: 22:20 4 09/02 22:14 Order name: Suicide Screening ([place]); Complete Time: 22:20 sp4 Administered Medications: 22:49 Drug: NS 0.9% IV 1000 ml IV at 1 bolus Per protocol; 1000 mL bolus Route: IV; Rate: 1 rv bolus; Site: left wrist; 23:40 Follow up: IV Status: Completed infusion jj7 Disposition Summary: 09/03/23 23:40 Discharge Ordered Notes: Location: Home sp4 Problem: new sp4 Symptoms: have improved sp4 Condition: Stable sp4 Diagnosis - Acute substance intoxication sp4 - Uncooperative Behavior sp4 Followup: sp4 - With: Private Physician - When: As needed - Reason: Discharge Instructions: - Discharge Summary Sheet sp4 - Medical Screening Exam sp4 Forms: - Patient Portal Instructions sp4 Signatures: Dispatcher [employer] Francisco Shahid RN RN rv Johnson, Juwairiyah, RN RN jj7 Jerad Lantigua MD MD sp4 Corrections: (The following items were deleted from the chart) 22:15 22:15 ACETAMINOPHEN+C.LAB.BRZ ordered. EDMS EDMS 22:15 22:15 BASIC METABOLIC PANEL+C.LAB.BRZ ordered. EDMS EDMS 22:15 22:15 CBC+H.LAB.BRZ ordered. EDMS EDMS 22:15 22:15 ETHANOL+C.LAB.BRZ ordered. EDMS EDMS 22:15 22:15 HEPATIC FUNCTION+C.LAB.BRZ ordered. EDMS EDMS 22:15 22:15 PROTIME (+INR)+COAG.LAB.BRZ ordered. EDMS EDMS 22:15 22:15 Test, Urine+UC.LAB.BRZ ordered. EDMS EDMS 22:15 22:15 PTT, ACTIVATED+COAG.LAB.BRZ ordered. EDMS EDMS 22:15 22:15 SALICYLATE+C.LAB.BRZ ordered. EDMS EDMS 22:15 22:15 URINE DRUG SCREEN+UC.LAB.BRZ ordered. EDMS EDMS
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
[2023-09-04 00:11] LABS: PT Prothrombin Time 12.7 SECONDS (9.5-12.5); PTT, Activated Partial Thromb 29.6 SECONDS (24.3-36.9); Protime INR 1.16
[2023-09-04 00:39] LABS: Blood Morphology Comment NOTED (NOT SEEN); Hypochromasia 1+; Microcytosis 1+; Platelet Estimate ADEQ; White Blood Cell Scan OK (OK)
[2023-09-04 07:48] VITALS: BP 144/99; TEMP 98.2; O2SAT 99
== END 2023-09-03 23:48 | disposition home or self-care (01) ==
LOC: ER 22:02
DX: F19.929 Other psychoactive substance use, unspecified with intoxication, unspecified (principal); F20.9 Schizophrenia, unspecified
CPT/HCPCS: 85025; 80048; 36415; 85610; 80076; 85730; 96360; 99284; 80143; 80179; 82077; J7030